=== PATIENT | female | born 1935 | race Caucasian/White ===

== ENCOUNTER 2017-06-20 12:25 | Emergency (ER) | payer MEDICARE, OTHER ==
[~2017-06-20] VITALS: Ht 157.5 cm; Wt 75.0 kg
[~2017-06-20 12:25] MED LIST: ASPI81TA28 PO; ATOR-24 PO; CLOP1TAB54 PO; IRON1TAB6 PO; LISI-725 PO; LISI-789 PO; METF500T PO; SERT25TA PO; SERT50TA PO; SIMV10TA2 PO; TCMD1 PO; TPRSR/50 PO; TRAM-10 PO; VITA100C2 PO; VITAMIN D3 PO
[2017-06-20 12:37] VITALS: TEMP 37.1; Ht 157.5 cm; Wt 75.0 kg
--- NOTE | 2017-06-20 13:41 | EMERGENCY ROOM VISIT NOTE ---
History Report prepared by Miriam: Edmund Garcia Under the Supervision of: Dr. Sharon Elizondo D.O. First contact with patient: 13:21 Chief Complaint: COUGH Stated Complaint: COUGHING UP BLOOD History of Present Illness The patient is an 81 year old female who presents to the Emergency Room with complaints of a worsening, productive, cough that started 4 days ago. The patient reports noticing small amounts of green colored phlegm and small amounts of blood when coughing yesterday. Associated symptoms include loss of appetite, a stiff neck, rhinorrhea, and nausea. She attributes her stiff neck to the way she has been sleeping. The patient states that she suffered from an upper respiratory infection a few years ago which showed similar symptoms as those she is experiencing today. She has an additional history of CHF and atrial fibrillation, for which she is prescribed anticoagulation therapy. She denies recent history of pneumonia. Patient denies chest pain, abdominal pain, shortness of breath beyond baseline, fevers, chills, and any additional associated symptoms. Source of History: patient, family Onset: 4 days ago Position: other (Respiratory ) Timing: worsening Modifying Factors (Relieving): other (None) Associated Symptoms: No fevers, No chills, No chest pain, No SOB, No abdominal pain Review of Systems See HPI for pertinent positives & negatives. A total of 10 systems reviewed and were otherwise negative. Past Medical & Surgical Medical Problems: (1) Acute urinary tract infection (2) Anxiety (3) Benign hypertension (4) CVA (5) Diabetes mellitus type 2 (6) Heart disease (7) Hypertension (8) URINARY FREQUENCY Family History Cancer Diabetes mellitus Gallbladder disease Heart disease Kidney disease Kidney stones Seizures Social History Smoking Status: Never Smoker Alcohol Use: none Marital Status: Housing Status: lives with family Occupation Status: retired Current/Historical Medications Scheduled Atorvastatin (Lipitor), 40 MG PO QAM Furosemide (Lasix), 1 TAB PO DAILY Iron-Vitamin C (Vitron-C), 1 TAB PO DAILY Isosorbide Mononitrate Ext Rel (Imdur Ext Rel), 1 TAB PO DAILY Metoprolol Succinate (Metoprolol Succinate ER), 50 MG PO QAM Sertraline (Zoloft), 25 MG PO QAM Warfarin Sodium (Coumadin), 1 TAB PO 3XWK Warfarin Sodium (Coumadin), 2 TAB PO 4XWK Scheduled PRN Tramadol (Ultram), 50 MG PO TID PRN for Pain Allergies Coded Allergies: No Known Allergies (Unverified , 06/20/17) Physical Exam Vital Signs Date Time Temp Pulse Resp B/P (MAP) Pulse Ox O2 Delivery O2 Flow Rate FiO2 06/20/17 17:02 101 18 157/101 93 06/20/17 16:19 91 Room Air 06/20/17 15:32 97 16 147/90 93 Room Air 06/20/17 14:15 92 Room Air 06/20/17 14:15 101 16 138/80 92 Room Air 06/20/17 12:37 37.1 110 18 130/72 92 Room Air Physical Exam GENERAL: alert, well appearing, well nourished, no distress, non-toxic EYE EXAM: normal conjunctiva, PERRL and EOM's grossly intact OROPHARYNX: Patient with sputum specimen at bedside, streams of blood noted. Oropharynx with no exudate, no erythema, lips, buccal mucosa, and tongue normal and mucous membranes are moist NECK: supple, no nuchal rigidity, no adenopathy, non-tender LUNGS: Clear to auscultation. Normal chest wall mechanics HEART: no murmurs, S1 normal and S2 normal ABDOMEN: abdomen soft, non-tender, normo-active bowel sounds, no masses, no rebound or guarding. BACK: Back is symmetrical on inspection and there is no deformity, no midline tenderness, no CVA tenderness. SKIN: no rashes and no bruising UPPER EXTREMITIES: upper extremities are grossly normal. LOWER EXTREMITIES: No pitting edema. NEURO EXAM: Normal sensorium, cranial nerves II-XII grossly intact, normal speech, no gross weakness of arms, no gross weakness of legs. Medical Decision & Procedures ER Provider Diagnostic Interpretation: Radiology results have been interpreted by the radiologist and reviewed by me. CT ANGIOGRAPHY OF THE CHEST, PULMONARY EMBOLUS PROTOCOL CLINICAL HISTORY: Cough. Hemoptysis. COMPARISON STUDY: Chest radiograph October 06, 2014. TECHNIQUE: Following IV administration of 92 mL of Optiray-320, helical axial images of the chest were obtained utilizing the pulmonary embolus protocol. Maximal intensity projections and sagittal and coronal reformats were viewed on an independent 3D workstation. IV contrast was administered without complication. A dose lowering technique was utilized adhering to the principles of ALARA. CT DOSE: 273.32 mGy.cm FINDINGS: No pulmonary emboli are identified although the segmental and subsegmental pulmonary arteries are suboptimally assessed due to respiratory motion. There is no evidence of thoracic aortic dissection. The heart is moderately enlarged. There is no pericardial effusion. No lobar consolidation is present. There is diffuse bronchial wall thickening with mild mucus plugging within the lower lobes. Several small ill-defined right lung airspace opacities are noted, most evident within the right upper lobe. There are scattered tree-in-bud nodules. Note is made of a 6 cm right lower lobe nodular density shown on image 89 of 283. There is no pneumothorax or pleural effusion. Bony thorax and upper abdomen are unremarkable. IMPRESSION: 1. No pulmonary emboli identified although segmental and subsegmental pulmonary arteries suboptimally assessed due to respiratory motion. 2. Several small ill-defined groundglass and tree-in-bud opacities within the right lung which suggest a mild infectious process such as bronchiolitis. A follow-up chest CT in 3 months to ensure resolution is recommended. A few small low suspicion pulmonary nodules can be assessed at that time. 3. Lower lobe predominant bronchial wall thickening and mild multifocal mucoid impaction. 4. Moderate cardiomegaly. 5. Small hiatal hernia. Electronically signed by: Jethro Og M.D. 06/20/2017 3:28 PM Dictated Date/Time: 06/20/2017 3:15 PM Laboratory Results 06/20/17 14:10 Red Blood Count 5.12, Mean Corpuscular Volume 76.6, Mean Corpuscular Hemoglobin 24.8, Mean Corpuscular Hemoglobin Concent 32.4, Mean Platelet Volume 9.4, Neutrophils (%) (Auto) 79.6, Lymphocytes (%) (Auto) 9.4, Monocytes (%) (Auto) 9.3, Eosinophils (%) (Auto) 1.2, Basophils (%) (Auto) 0.2, Neutrophils # (Auto) 9.60, Lymphocytes # (Auto) 1.14, Monocytes # (Auto) 1.13, Eosinophils # (Auto) 0.15, Basophils # (Auto) 0.03 06/20/17 14:10 Test 06/20/17 14:10 White Blood Count 12.09 K/uL (4.8-10.8) Red Blood Count 5.12 M/uL (4.2-5.4) Hemoglobin 12.7 g/dL (12.0-16.0) Hematocrit 39.2 % (37-47) Mean Corpuscular Volume 76.6 fL (80-100) Mean Corpuscular Hemoglobin 24.8 pg (25-34) Mean Corpuscular Hemoglobin Concent 32.4 g/dl (32-36) Platelet Count 312 K/uL (130-400) Mean Platelet Volume 9.4 fL (7.4-10.4) Neutrophils (%) (Auto) 79.6 % Lymphocytes (%) (Auto) 9.4 % Monocytes (%) (Auto) 9.3 % Eosinophils (%) (Auto) 1.2 % Basophils (%) (Auto) 0.2 % Neutrophils # (Auto) 9.60 K/uL (1.4-6.5) Lymphocytes # (Auto) 1.14 K/uL (1.2-3.4) Monocytes # (Auto) 1.13 K/uL (0.11-0.59) Eosinophils # (Auto) 0.15 K/uL (0-0.5) Basophils # (Auto) 0.03 K/uL (0-0.2) RDW Standard Deviation 40.7 fL (36.4-46.3) RDW Coefficient of Variation 14.2 % (11.5-14.5) Immature Granulocyte % (Auto) 0.3 % Immature Granulocyte # (Auto) 0.04 K/uL (0.00-0.02) Prothrombin Time 54.9 SECONDS (9.0-12.0) Prothromb Time International Ratio 4.8 (0.9-1.1) Anion Gap 5.0 mmol/L (3-11) Est Creatinine Clear Calc Drug Dose 36.7 ml/min Estimated GFR () 53.8 Estimated GFR (Non- 46.4 BUN/Creatinine Ratio 12.5 (10-20) Calcium Level 9.0 mg/dl (8.5-10.1) Total Bilirubin 0.6 mg/dl (0.2-1) Aspartate Amino Transf (AST/SGOT) 15 U/L (15-37) Alanine Aminotransferase (ALT/SGPT) 12 U/L (12-78) Alkaline Phosphatase 123 U/L (45-117) Troponin I 0.018 ng/ml (0-0.045) Pro-B-Type Natriuretic Peptide 2383 pg/ml (0-1800) Total Protein 7.5 gm/dl (6.4-8.2) Albumin 2.9 gm/dl (3.4-5.0) Globulin 4.6 gm/dl (2.5-4.0) Albumin/Globulin Ratio 0.6 (0.9-2) Laboratory results per my review. ECG Indication: other (Cough) Rate (beats per minute): 95 Rhythm: sinus rhythm Findings: no acute ischemic change, other (Normal axis, normal interval, low voltage throughout ) ED Course 1329: The patient was evaluated in room C4. A complete history and physical exam was performed. 1455: Review of EMR reveals patient had Echo done in October 2014 which showed EF 25-30% Chart also reveals significant cardiomyopathy in the past. 1538: I updated the patient. She made me aware that she has not been taking her Lasix daily for several months. She is unable to remember the last time she had an Echo. The patient follows with Dr. Walters (Cardiology). 1605: I reviewed the patient's case with Dr. Santos (Cardiology). He requests that I tell the patient to restart her Lasix and take as prescribed. He also recommends the patient follow up closely in the office. 1619: Upon reevaluation, the patient is feeling better. I discussed the findings and the treatment plan with the patient. She verbalizes agreement and understanding. She was discharged home. Medical Decision Patient well-appearing here despite complaints. Per patient and family noncompliant with home oxygen is previous liters prescribed. She with known significant cardiomyopathy and decreased ejection fraction. Patient's exam not consistent with acute congestive heart failure. No history of COPD and patient never smoker. Patient's INR supratherapeutic and no evidence of PE on CAT scan of the chest. Patient found to have mild bronchiolitis on CT. Sputum at bedside was clear with streaks of blood. Likely hemoptysis secondary to supratherapeutic INR due to Coumadin use for A. fib. Labs otherwise reassuring. No evidence of bacteremia/sepsis. Patient with elevated BNP, however considering known cardiac history in patient's admission to being noncompliant with taking her daily Lasix as prescribed, likely a chronic finding. This was discussed with cardiology as a precaution. I advised patient should restart her Lasix and they will see her in the office next week. Extensive bedside discussion with patient and family about her condition, compliance with treatment prescribed by her doctors, close follow-up with cardiology, symptoms to watch and return for, use of other medications, holding Coumadin for 2 days and then having a repeat INR done the beginning of the week , they verbalized understanding of all this were agreeable with plan. Doubt ACS, CHF, tamponade, effusion, pneumonia, dissection, AAA, PE, perforation , GI bleed, deep space infection, bacteremia/sepsis, peritonsillar abscess, strep pharyngitis, meningitis. Medication Reconcilliation Current Medication List: was personally reviewed by me Blood Pressure Screening Patient's blood pressure: Elevated blood pressure Blood pressure disposition: Elevated BP felt to be situational Consults Time Called: 1550 Consulting Physician: Dr. Santos (Cardiology) Returned Call: 1605 I reviewed the patient's case with Dr. Santos (Cardiology). He requests that I tell the patient to restart her Lasix and take as prescribed. He also recommends the patient follow up closely in the office. They will schedule appointment call the patient. He agrees likely BNP elevated chronically patient 's exam and CT otherwise consistent with acute CHF. Impression Primary Impression: Cough Additional Impressions: Upper respiratory infection Hemoptysis Scribe Attestation The scribe's documentation has been prepared under my direction and personally reviewed by me in its entirety. I confirm that the note above accurately reflects all work, treatment, procedures, and medical decision making performed by me. Departure Information Dispostion Home / Self-Care Referrals Brandon Yu M.D. (PCP) Forms HOME CARE DOCUMENTATION FORM, IMPORTANT VISIT INFORMATION Patient Instructions My [facility] Additional Instructions Please do not take your Coumadin for tonight, then begin taking it again as normal. Please have your Coumadin number/INR rechecked the beginning of next week. Please take your Lasix daily as previously prescribed. Please continue to monitor your symptoms. The blood in your sputum was likely due to being on blood thinners and your blood being extra thin. If you have any worsening cough , develop trouble breathing, fevers or chills, chest pain or pressure, feel you' re developing swelling in your legs or gaining weight, feel dizzy or lightheaded , or you have any other new concerns, please return to the emergency room. Problem Qualifiers Additional Impressions: Upper respiratory infection URI type: unspecified URI Qualified Codes: J06.9 - Acute upper respiratory infection, unspecified
[2017-06-20] MEDS ORDERED: OPTIRAY 320 IV PRN (14:00)
[2017-06-20 14:26] LABS: BASO % 0.2 %; BASO ABS # 0.03 K/uL (0-0.2); COMPLETE YES; EOS % 1.2 %; HEMATOCRIT 39.2 % (37-47); IG% 0.3 %; LYMPH % 9.4 %; LYMPH ABS # 1.14 K/uL (1.2-3.4); MEAN CELL VOLUME 76.6 fL (80-100); MEAN CORPUSCULAR HEMOGLOBIN 24.8 pg (25-34); MEAN CORPUSCULAR HGB CONC 32.4 g/dl (32-36); MEAN PLATELET VOLUME 9.4 fL (7.4-10.4); MONO % 9.3 %; NEUT % 79.6 %; PLATELET COUNT 312 K/uL (130-400); RED BLOOD COUNT 5.12 M/uL (4.2-5.4); WHITE BLOOD COUNT 12.09 K/uL (4.8-10.8)
[2017-06-20 14:39] LABS: PROTHROMBIN TIME (PATIENT) 54.9 SECONDS (9.0-12.0)
[2017-06-20 14:44] LABS: BUN/CREATININE RATIO 12.5 (10-20); CREATININE 1.1 mg/dl (0.60-1.20); POTASSIUM 4.1 mmol/L (3.5-5.1)
[2017-06-20 14:49] LABS: ALB/GLOB RATIO 0.6 (0.9-2)
[2017-06-20 14:50] LABS: INR 4.8 (0.9-1.1)
--- NOTE | 2017-06-20 15:29 | DIAGNOSTIC IMAGING REPORT ---
CT ANGIOGRAPHY OF THE CHEST, PULMONARY EMBOLUS PROTOCOL CLINICAL HISTORY: Cough. Hemoptysis. COMPARISON STUDY: Chest radiograph October 06, 2014. TECHNIQUE: Following IV administration of 92 mL of Optiray-320, helical axial images of the chest were obtained utilizing the pulmonary embolus protocol. Maximal intensity projections and sagittal and coronal reformats were viewed on an independent 3D workstation. IV contrast was administered without complication. A dose lowering technique was utilized adhering to the principles of ALARA. CT DOSE: 273.32 mGy.cm FINDINGS: No pulmonary emboli are identified although the segmental and subsegmental pulmonary arteries are suboptimally assessed due to respiratory motion. There is no evidence of thoracic aortic dissection. The heart is moderately enlarged. There is no pericardial effusion. No lobar consolidation is present. There is diffuse bronchial wall thickening with mild mucus plugging within the lower lobes. Several small ill-defined right lung airspace opacities are noted, most evident within the right upper lobe. There are scattered tree-in-bud nodules. Note is made of a 6 cm right lower lobe nodular density shown on image 89 of 283. There is no pneumothorax or pleural effusion. Bony thorax and upper abdomen are unremarkable. IMPRESSION: 1. No pulmonary emboli identified although segmental and subsegmental pulmonary arteries suboptimally assessed due to respiratory motion. 2. Several small ill-defined groundglass and tree-in-bud opacities within the right lung which suggest a mild infectious process such as bronchiolitis. A follow-up chest CT in 3 months to ensure resolution is recommended. A few small low suspicion pulmonary nodules can be assessed at that time. 3. Lower lobe predominant bronchial wall thickening and mild multifocal mucoid impaction. 4. Moderate cardiomegaly. 5. Small hiatal hernia. Electronically signed by: Jethro Og M.D. 06/20/2017 3:28 PM Dictated Date/Time: 06/20/2017 3:15 PM
[2017-06-20] MEDS ORDERED: FURO-85 PO (15:41)
[2017-06-20] MEDS ORDERED: ISOS30TA3 PO (15:41)
[2017-06-20] MEDS ORDERED: FERRTAB18 PO (15:41)
[2017-06-20] MEDS ORDERED: WARF1TAB PO ×2 (15:43)
[2017-06-20 17:02] VITALS: BP 157/101; PULSE 101; O2SAT 93
== END 2017-06-20 17:09 | disposition home or self-care (01) ==
LOC: C.EDB 12:29 → C.EDC 17:09
DX: R05 Cough (principal); J06.9 Acute upper respiratory infection, unspecified; R04.2 Hemoptysis; I11.0 Hypertensive heart disease with heart failure; I50.9 Heart failure, unspecified; I48.91 Unspecified atrial fibrillation; F41.9 Anxiety disorder, unspecified; Z79.01 Long term (current) use of anticoagulants; E11.9 Type 2 diabetes mellitus without complications; Z86.73 Personal history of transient ischemic attack (TIA), and cerebral infarction without residual deficits; Z83.3 Family history of diabetes mellitus; Z84.1 Family history of disorders of kidney and ureter; Z82.0 Family history of epilepsy and other diseases of the nervous system

== ENCOUNTER 2021-12-13 22:12 | Inpatient (IN) ==
[2021-12-13] MEDS ORDERED: FAMOTIDINE 20MG IV PUSH 20 MG/5 ML SYR IV STA (22:41)
[2021-12-13] MEDS ORDERED: SODIUM CHLORIDE 0.9% 1000ML 500 ML IV ONE (22:41)
[2021-12-13] MEDS ORDERED: ONDANSETRON INJ 2 MG/ML 2 ML VIAL IV STA (22:41)
--- NOTE | 2021-12-13 22:44 | Emergency Department Note ---
Impression & Plan Acute GI bleeding, Acute blood loss anemia (ABLA), Weakness, Elevated INR ED Provider Note Provider: Vincent Gruber MD DATE OF SERVICE: 12/13/2021 CHIEF COMPLAINT: Weakness, urinary frequency, stomach upset HISTORY OF PRESENT ILLNESS: Patient is a 86-year-old female past medical history of type 2 diabetes, atrial fibrillation/CHF, hypertension and presenting via ambulance from home tonight. Patient evidently started to feel a bit off yesterday with some decreased intake. Today complaining of some stomach discomfort and urinary frequency. Limited food intake today but has taken her m edicines per her report. Daughter who is present at bedside states that she has been a little bit confused at times today. Patient denies significant headache or chest pain. Denies URI symptoms. Patient reports that her stomach feels unsettled and she is intermittently noticed little black stools. Daughter at bedside reports the patient seemed a bit pale to her as well. REVIEW OF SYSTEMS: A total of 10 review of systems was obtained and negative except as stated above in the HPI. PAST MEDICAL HISTORY: As noted above MEDICATIONS: Reviewed home medication list include Coumadin SOCIAL HISTORY: Lives at home with daughter PHYSICAL EXAM: GENERAL: alert and oriented in no acute distress on stretcher Head: normocephalic and atraumatic EYES: No injection, discharge or icterus. PERRL NECK: Trachea midline. ENT: Mucous membranes pink and moist. LUNGS: Airway patent. No retractions. Breath sounds clear with good air entry bilaterally. HEART: Intermittently irregular and intermittently tachycardic rate and rhythm. No chest wall tenderness ABDOMEN: Soft mild mid abdominal pain. Not peritoneal. No guarding. With nursing road oiler Sarah, Hemoccult positive rectal exam without gross red blood. SKIN: Acyanotic, warm, dry, without rashes however somewhat pale in appearance EXTREMITIES: Without swelling, tenderness or deformity NEUROLOGICAL: No focal deficits moving all extremities. No aphasia. No facial droop or slurred speech. EK bpm normal sinus rhythm QTC of 471. No acute ST segment elevation or depression noted. CONTINUOUS CARDIAC MONITORING: was ordered and showed a heart rate of 80s to 120s bpm in atrial fibrillation normal sinus rhythm at various points 1 view chest x-ray per my interpretation: No evidence of pneumonia or pneumothorax. No significant pulmonary edema. Patient's laboratory studies and imaging reviewed. Differential includes Infection, dehydration, metabolic abnormality, hypo/hyperglycemia, electrolyte disturbance, anemia, hypoxia, cardiac sources, intracerebral event, toxicologic, neurologic, as well as other pathologies. IMPRESSION/MEDICAL DECISION MAKING: Patient presents with some weakness maybe little bit of confusion developing over the past 24 to 36 hours. Some upset abdominal discomforts noted as well. Patient with minimal but slight mid abdominal tenderness. Patient is alert and oriented here without focal neurological deficit. Does complain of some urinary symptoms. Urinalysis not impressive. Negative COVID. Hemoglobin returned significantly decreased at 6.6 compared to 13 3 weeks ago. Does endorse me lanotic stools and melena noted on exam with the patient Hemoccult positive. INR greater than 10. GI bleed concern. CT completed to exclude internal bleeding. Consented for blood. 1 unit PRBC transfusion ordered. PPI bolus and drip ordered. Vitamin K ordered. Kcentra to be given. Patient and daughter updated at bedside. Hospitalist to be contacted. DIAGNOSIS: GI bleed, elevated INR, weakness, acute blood loss anemia DISPOSITION: Hospitalist will evaluate Patient was agreeable with this plan. Daughter updated at bedside Critical Care I have personally spent 35 minutes of critical care time in the direct management of this patient. This includes bedside care, interpretation of diagnostic studies, and testing, discussion with consultants, patient, and f amily members, and other required patient management activities. These 35 minutes is in excess of all separately billable procedures. Preliminary Findings Only See Final Report For Complete Findings CT HEAD: Comparison to October 06, 2014. There is in approximately 4 cm area evidence of encephalomalacia in the right frontal parietal region consistent with old infarct, unchanged. The remainder of the brain appears within normal limits. No acute large vessel infarct or intracranial hemorrhage is identified. The paranasal sinuses and mastoid air cells are within normal limits. No skull fracture or scalp hematoma is seen. Radiologist: Vincent Wetzel MD Study ready at 01:48 and initial results transmitted at 02:01 Preliminary Findings Only See Final Report For Complete Findings CT ABDOMEN & PELVIS Without Contrast: There is a nonobstructive 5 mm calyceal calculus in the lower pole the right ki dney. No hydronephrosis or ureterolithiasis is seen. Bowel loops are nondilated. There is moderate diverticulosis of the lower left and sigmoid colon. There are no signs of acute diverticulitis. There are several scattered gas fluid levels in the right and transverse colon suggesting mild ileus. No pneumoperitoneum or free fluid is seen. No signs of acute appendicitis. The abdominal aorta is heavily calcified but nondilated. The liver, gallbladder, pancreas, spleen, and adrenal glands appear within normal limits. The uterus, adnexa, and urinary bladder appear within normal limits. There are moderate degenerative changes throughout the lower thoracic and lumbar spine. No acute fracture or subluxation is seen. There are severe degenerative osteophytic changes involving the left hip. Radiologist: Vincent Wetzel MD Past Med/Surg History Medical History (Updated 12/13/21 @ 23:49 by Vincent Gruber M.D.) Acute CHF (10/06/14) Acute urinary tract infection (08/08/12) AF (atrial fibrillation) (10/06/14) Anxiety (08/08/12) Benign hypertension (08/08/12) CHF exacerbation CVA (cerebral vascular accident) (08/08/12) Cystocele (08/08/12) DM2 (diabetes mellitus, type 2) (08/08/12) Heart disease Hypertension Shortness of breath Thrombophlebitis Urinary frequency (08/08/12) Urinary retention (08/08/12) Surgical History No pertinent past surgical history Social History Smoking Status: Never smoker Preferred Language: Filipino Feels Safe at Home: Yes Allergies Allergies Allergy/AdvReac Type Severity Reaction Status Date / Time No Known Allergies Allergy Unverified 12/13/21 22:30 Home Meds Home Medications Medication Instructions Recorded Confirmed sertraline 25 mg tablet 25 mg PO DAILY #0 tab 10/06/14 12/13/21 tramadol 50 mg tablet 50 mg PO TID PRN #0 tab 10/06/14 12/13/21 atorvastatin 40 mg tablet 40 mg PO QAM #0 tab 11/01/14 12/13/21 metoprolol succinate 25 mg 12.5 mg PO QAM #0 11/01/14 12/13/21 tablet,extended release 24 hr ascorbic acid (vitamin C) 125 mg 125 mg PO DAILY #0 06/20/17 12/13/21 chewable tablet (Vitamin C) warfarin 1 mg tablet 1 - 2 tab PO UD #0 06/20/17 12/13/21 acetaminophen 500 mg tablet 500 mg PO DAILY PRN 11/25/21 12/13/21 isosorbide mononitrate 60 mg 60 mg PO DAILY 12/13/21 12/13/21 tablet,extended release 24 hr Results & Data (ED) Vital Signs Vital Signs - 24 hr 12/13/21 22:25 12/13/21 23:00 12/14/21 00:00 Temperature 36.8 C Temperature Source Oral Pulse Rate 86 85 Pulse Rate [Apical] Respiratory Rate 19 23 Respiratory Effort / Characteristics Respiratory Depth Respiratory Pattern Blood Pressure 124/46 L 130/54 L 110/58 L Blood Pressure [Right Arm] Blood Pressure Mean 72 79 75 Blood Pressure Mean [Right Arm] Blood Pressure Position [Right Arm] Pulse Oximetry 100 99 85 L Oxygen Delivery Method Room Air Room Air Room Air Oxygen Flow Rate Sepsis Recent Fever Within 48 Hours No Sepsis New/Unexplained Change in Mental Status No Sepsis Action Taken by Nursing No Action Required Oxygen Flow Rate - Titration Pulse Oximetry Post Tiitration 12/14/21 00:10 12/14/21 00:14 12/14/21 00:15 Temperature Temperature Source Pulse Rate 84 Pulse Rate [Apical] Respiratory Rate 20 20 Respiratory Effort / Characteristics Respiratory Depth Respiratory Pattern Blood Pressure 117/47 L 121/45 L Blood Pressure [Right Arm] Blood Pressure Mean 70 70 Blood Pressure Mean [Right Arm] Blood Pressure Position [Right Arm] Pulse Oximetry 86 L 97 100 Oxygen Delivery Method Room Air Nasal Cannula Nasal Cannula Nasal Cannula Oxygen Flow Rate 0 3 3 Sepsis Recent Fever Within 48 Hours Sepsis New/Unexplained Change in Mental Status Sepsis Action Taken by Nursing Oxygen Flow Rate - Titration 3 Pulse Oximetry Post Tiitration 100 12/14/21 00:30 12/14/21 00:32 12/14/21 00:45 Temperature Temperature Source Pulse Rate 76 84 Pulse Rate [Apical] 121 H Respiratory Rate 17 18 18 Respiratory Effort / Characteristics Non-Labored Spontaneous Respiratory Depth Normal Respiratory Pattern Regular Blood Pressure 116/63 146/61 H Blood Pressure [Right Arm] 116/63 Blood Pressure Mean 80 89 Blood Pressure Mean [Right Arm] 80 Blood Pressure Position [Right Arm] Semi-fowlers Pulse Oximetry 100 100 100 Oxygen Delivery Method Nasal Cannula Nasal Cannula Nasal Cannula Oxygen Flow Rate 3 3 Sepsis Recent Fever Within 48 Hours Sepsis New/Unexplained Change in Mental Status Sepsis Action Taken by Nursing Oxygen Flow Rate - Titration Pulse Oximetry Post Tiitration Laboratory Data Result diagrams: 12/13/21 22:24 12/13/21 22:24 Lab Results 12/13/21 12/13/21 12/13/21 Range/Units 22:24 22:24 22:24 WBC 16.66 H (4.8-10.8) K/uL RBC 2.53 L (4.2-5.4) M/uL Hgb 6.6 L* (12.0-16.0) g/dL Hct 21.1 L (37-47) % MCV 83.4 (80-100) fL MCH 26.1 (25-34) pg MCHC 31.3 L (32-36) g/dL RDW Std Deviation 46.1 (36.4-46.3) fL RDW Coeff of Tammie 15.5 H (11.5-14.5) % Plt Count 311 (130-400) K/uL MPV 11.0 H (7.4-10.4) fL Immature Gran % (Auto) 0.5 % Neut % (Auto) 86.4 % Lymph % (Auto) 9.6 % Newberry % (Auto) 3.1 % Eos % (Auto) 0.3 % Baso % (Auto) 0.1 % Neut # (Auto) 14.39 H (1.4-6.5) K/uL Lymph # (Auto) 1.60 (1.2-3.4) K/uL Newberry # (Auto) 0.52 (0.11-0.59) K/uL Eos # (Auto) 0.05 (0-0.5) K/uL Baso # (Auto) 0.02 (0-0.2) K/uL Immature Gran # (Auto) 0.08 H (0.00-0.02) K/uL Ovalocytes 1+ Acanthocytes (Spur) 1+ PT (9.0-12.0) Seconds INR (0.9-1.1) Sodium 134 L (136-145) mmol/L Potassium 4.0 (3.5-5.1) mmol/L Chloride 100 (98-107) mmol/L Carbon Dioxide 23 (21-32) mmol/L Anion Gap 11 (3-11) BUN 76 H (6-23) mg/dl Creatinine 1.21 H (0.6-1.2) mg/dl Est Cr Clr Drug Dosing Not Reportable Est GFR ( Amer) 46.3 ml/min Est GFR (Non-Af Amer) 39.9 ml/min BUN/Creatinine Ratio 62.8 H (10-20) Glucose 276 H (70-99) mg/dl Calcium 8.0 L (8.5-10.1) mg/dl Magnesium 1.6 L (1.7-2.4) mg/dl Total Bilirubin 0.4 (0.2-1.0) mg/dl AST 11 L (13-39) U/L ALT 8 (7-52) U/L Alkaline Phosphatase 46 (34-104) U/L Troponin I < 0.03 (0-0.04) ng/ml Total Protein 5.4 L (6.0-8.3) gm/dl Albumin 3.4 (3.4-5.0) gm/dl Globulin 2.0 L (2.5-4.0) gm/dl Albumin/Globulin Ratio 1.7 (0.9-2) Lipase 40 (11-82) U/L Procalcitonin (0-0.5) ng/ml TSH 1.282 (0.300-4.500) uIu/ml Urine Color Urine Appearance (Clear) Urine pH (4.5-7.5) Ur Specific [place] (1.000-1.030) Urine Protein (Negative) Urine Glucose (UA) (Negative) Urine Ketones (Negative) Urine Blood (Negative) Urine Nitrite (Negative) Urine Bilirubin (Negative) Urine Urobilinogen (Negative) Ur Leukocyte Esterase (Negative) Urine WBC (Auto) (0-5) /hpf Urine RBC (Auto) (0-4) /hpf U Hyaline Cast (Auto) (0-5) /lpf U Epithel Cells (Auto) (0-5) /lpf Urine Bacteria (Auto) (Negative) SARS-CoV-2, RNA, NAAT (NEGATIVE) Blood Type Antibody Screen Crossmatch 12/13/21 12/13/21 12/13/21 Range/Units 22:24 22:24 22:24 WBC (4.8-10.8) K/uL RBC (4.2-5.4) M/uL Hgb (12.0-16.0) g/dL Hct (37-47) % MCV (80-100) fL MCH (25-34) pg MCHC (32-36) g/dL RDW Std Deviation (36.4-46.3) fL RDW Coeff of Tammie (11.5-14.5) % Plt Count (130-400) K/uL MPV (7.4-10.4) fL Immature Gran % (Auto) % Neut % (Auto) % Lymph % (Auto) % Newberry % (Auto) % Eos % (Auto) % Baso % (Auto) % Neut # (Auto) (1.4-6.5) K/uL Lymph # (Auto) (1.2-3.4) K/uL Newberry # (Auto) (0.11-0.59) K/uL Eos # (Auto) (0-0.5) K/uL Baso # (Auto) (0-0.2) K/uL Immature Gran # (Auto) (0.00-0.02) K/uL Ovalocytes Acanthocytes (Spur) PT > 90.0 H (9.0-12.0) Seconds INR > 10.7 H* (0.9-1.1) Sodium (136-145) mmol/L Potassium (3.5-5.1) mmol/L Chloride (98-107) mmol/L Carbon Dioxide (21-32) mmol/L Anion Gap (3-11) BUN (6-23) mg/dl Creatinine (0.6-1.2) mg/dl Est Cr Clr Drug Dosing Est GFR ( Amer) ml/min Est GFR (Non-Af Amer) ml/min BUN/Creatinine Ratio (10-20) Glucose (70-99) mg/dl Calcium (8.5-10.1) mg/dl Magnesium (1.7-2.4) mg/dl Total Bilirubin (0.2-1.0) mg/dl AST (13-39) U/L ALT (7-52) U/L Alkaline Phosphatase (34-104) U/L Troponin I (0-0.04) ng/ml Total Protein (6.0-8.3) gm/dl Albumin (3.4-5.0) gm/dl Globulin (2.5-4.0) gm/dl Albumin/Globulin Ratio (0.9-2) Lipase (11-82) U/L Procalcitonin 0.13 (0-0.5) ng/ml TSH (0.300-4.500) uIu/ml Urine Color Urine Appearance (Clear) Urine pH (4.5-7.5) Ur Specific [place] (1.000-1.030) Urine Protein (Negative) Urine Glucose (UA) (Negative) Urine Ketones (Negative) Urine Blood (Negative) Urine Nitrite (Negative) Urine Bilirubin (Negative) Urine Urobilinogen (Negative) Ur Leukocyte Esterase (Negative) Urine WBC (Auto) (0-5) /hpf Urine RBC (Auto) (0-4) /hpf U Hyaline Cast (Auto) (0-5) /lpf U Epithel Cells (Auto) (0-5) /lpf Urine Bacteria (Auto) (Negative) SARS-CoV-2, RNA, NAAT NEGATIVE (NEGATIVE) Blood Type Antibody Screen Crossmatch 12/13/21 12/13/21 Range/Units 22:56 23:50 WBC (4.8-10.8) K/uL RBC (4.2-5.4) M/uL Hgb (12.0-16.0) g/dL Hct (37-47) % MCV (80-100) fL MCH (25-34) pg MCHC (32-36) g/dL RDW Std Deviation (36.4-46.3) fL RDW Coeff of Tammie (11.5-14.5) % Plt Count (130-400) K/uL MPV (7.4-10.4) fL Immature Gran % (Auto) % Neut % (Auto) % Lymph % (Auto) % Newberry % (Auto) % Eos % (Auto) % Baso % (Auto) % Neut # (Auto) (1.4-6.5) K/uL Lymph # (Auto) (1.2-3.4) K/uL Newberry # (Auto) (0.11-0.59) K/uL Eos # (Auto) (0-0.5) K/uL Baso # (Auto) (0-0.2) K/uL Immature Gran # (Auto) (0.00-0.02) K/uL Ovalocytes Acanthocytes (Spur) PT (9.0-12.0) Seconds INR (0.9-1.1) Sodium (136-145) mmol/L Potassium (3.5-5.1) mmol/L Chloride (98-107) mmol/L Carbon Dioxide (21-32) mmol/L Anion Gap (3-11) BUN (6-23) mg/dl Creatinine (0.6-1.2) mg/dl Est Cr Clr Drug Dosing Est GFR ( Amer) ml/min Est GFR (Non-Af Amer) ml/min BUN/Creatinine Ratio (10-20) Glucose (70-99) mg/dl Calcium (8.5-10.1) mg/dl Magnesium (1.7-2.4) mg/dl Total Bilirubin (0.2-1.0) mg/dl AST (13-39) U/L ALT (7-52) U/L Alkaline Phosphatase (34-104) U/L Troponin I (0-0.04) ng/ml Total Protein (6.0-8.3) gm/dl Albumin (3.4-5.0) gm/dl Globulin (2.5-4.0) gm/dl Albumin/Globulin Ratio (0.9-2) Lipase (11-82) U/L Procalcitonin (0-0.5) ng/ml TSH (0.300-4.500) uIu/ml Urine Color Yellow Urine Appearance Clear (Clear) Urine pH 5.0 (4.5-7.5) Ur Specific [place] 1.019 (1.000-1.030) Urine Protein Negative (Negative) Urine Glucose (UA) Negative (Negative) Urine Ketones Trace H (Negative) Urine Blood Negative (Negative) Urine Nitrite Negative (Negative) Urine Bilirubin Negative (Negative) Urine Urobilinogen Negative (Negative) Ur Leukocyte Esterase 1+ H (Negative) Urine WBC (Auto) 1-5 (0-5) /hpf Urine RBC (Auto) 0-4 (0-4) /hpf U Hyaline Cast (Auto) 1-5 (0-5) /lpf U Epithel Cells (Auto) 5-10 H (0-5) /lpf Urine Bacteria (Auto) Negative (Negative) SARS-CoV-2, RNA, NAAT (NEGATIVE) Blood Type A Positive Antibody Screen NEGATIVE Crossmatch See Detail Administered Medications Pantoprazole Sodium 40 mg/ (Dextrose) 100 mls @ 20 mls/hr IV Q5H DELFINO Stop: 01/12/22 23:29 Last Admin: 12/14/21 01:13 Dose: 8 mg/hr, 20 mls/hr Documented by: [id number] Discontinued Medications Sodium Chloride (Nss 1000ml) 500 mls @ 999 mls/hr IV .Q31M ONE Stop: 12/13/21 23:11 Last Infusion: 12/14/21 00:02 Dose: 0 mls/hr Documented by: [id number] Admin: 12/13/21 23:31 Dose: 999 mls/hr Documented by: [id number] Famotidine (Pepcid 20mg Iv Push) 20 mg in 5 mls @ 2.5 mls/min IV NOW STA Stop: 12/13/21 22:42 Last Admin: 12/13/21 23:30 Dose: 2.5 mls/min Documented by: [id number] Phytonadione 10 mg/ Sodium (Chloride) 51 mls @ 102 mls/hr IV ONE ONE Stop: 12/13/21 23:34 Last Infusion: 12/14/21 00:15 Dose: 0 mls/hr Documented by: [id number] Admin: 12/13/21 23:45 Dose: 102 mls/hr Documented by: [id number] Pantoprazole Sodium 80 mg/ (Dextrose) 120 mls @ 400 mls/hr IV NOW ONE Stop: 12/13/21 23:22 Last Infusion: 12/14/21 01:02 Dose: 0 mls/hr Documented by: [id number] Admin: 12/14/21 00:44 Dose: 400 mls/hr Documented by: [id number] Prothrombin Complex Concent ( (Human) 3,500 units/ Syringe) 140 mls @ 10 mls/min IV NOW ONE; Protocol Stop: 12/13/21 23:58 Last Admin: 12/13/21 23:50 Dose: 10 mls/min Documented by: [id number] Ondansetron HCl (Ondansetron Inj 2 Mg/Ml 2 Ml Vial) 4 mg IV NOW STA Stop: 12/13/21 22:42 Last Admin: 12/13/21 23:30 Dose: 4 mg Documented by: [id number] Discharge Plan Visit Data Chief Complaint: Urinary Symptoms Stated Complaint: WEAKNESS ED Provider: Vincent Gruber Discharge Problem: Acute GI bleeding, Acute blood loss anemia (ABLA), Weakness, Elevated INR Patient Disposition: Being Evaluated by Hospitalist Forms Stand Alone Forms: [facility] Prescriptions Prescriptions: No Action sertraline 25 mg Tablet 25 mg PO DAILY Qty: 0 RF: 0 tramadol 50 mg Tablet 50 mg PO TID PRN (Reason: Pain) Qty: 0 RF: 0 atorvastatin 40 mg Tablet 40 mg PO QAM Qty: 0 RF: 0 metoprolol succinate 25 mg Tablet Extended Release 24 Hr 12.5 mg PO QAM Qty: 0 RF: 0 ascorbic acid (vitamin C) [Vitamin C] 125 mg Tablet,Chewable 125 mg PO DAILY Qty: 0 RF: 0 warfarin 1 mg Tablet 1 - 2 tab PO UD Qty: 0 RF: 0 acetaminophen [Tylenol Ex Str Rapid Release] 500 mg Tablet 500 mg PO DAILY PRN (Reason: Pain) RF: 0 isosorbide mononitrate 60 mg tablet extended release 24 hr 60 mg PO DAILY RF: 0 Referrals Referrals: Brandon Yu MD [Primary Care Provider] -
[2021-12-13 23:01] LABS: Hematocrit (blood only) 21.1 % (37-47); Hemoglobin 6.6 g/dL (12.0-16.0); Mean Corpuscular Hemoglobin 26.1 pg (25-34); Mean Corpuscular Hgb Conc 31.3 g/dL (32-36); Mean Corpuscular Volume 83.4 fL (80-100); Platelet Count 311 K/uL (130-400); RDW Coefficient of Variation 15.5 % (11.5-14.5); RDW Standard Deviation 46.1 fL (36.4-46.3); Red Blood Count 2.53 M/uL (4.2-5.4); White Blood Count 16.66 K/uL (4.8-10.8)
[2021-12-13 23:03] LABS: Appearance Urine Clear (Clear); Bacteria Urine Automated Negative (Negative); Bilirubin Urine Negative (Negative); Blood Urine Negative (Negative); Color Urine Yellow; Glucose Urine UA Negative (Negative); Ketones Urine Trace (Negative); Leukocyte Esterase Urine 1+ (Negative); Nitrite Urine Negative (Negative); Protein Urine Negative (Negative); RBC Urine Automated 0-4 /hpf (0-4); Specific Gravity Urine 1.019 (1.000-1.030); Urobilinogen Urine Negative (Negative)
[2021-12-13 23:04] LABS: Alanine Aminotransferase 8 U/L (7-52); Albumin Globulin Ratio 1.7 (0.9-2); Albumin Level 3.4 gm/dl (3.4-5.0); Alkaline Phosphatase 46 U/L (34-104); Anion Gap 11 (3-11); Aspartate Aminotransferase 11 U/L (13-39); BUN Creatinine Ratio 62.8 (10-20); Bilirubin,Total 0.4 mg/dl (0.2-1.0); Blood Urea Nitrogen 76 mg/dl (6-23); Carbon Dioxide 23 mmol/L (21-32); Chloride 100 mmol/L (98-107); Est GFR (African American) 46.3 ml/min; Est GFR (Non-African American) 39.9 ml/min; Glucose 276 mg/dl (70-99); INR > 10.7 (0.9-1.1); Lipase 40 U/L (11-82); Magnesium 1.6 mg/dl (1.7-2.4); Prothrombin Time > 90.0 Seconds (9.0-12.0); Sodium 134 mmol/L (136-145); Total Protein 5.4 gm/dl (6.0-8.3)
[2021-12-13] MEDS ORDERED: PANTOprazole 80 MG in DEXTROSE 5% 100 ML IV ONE (23:05)
[2021-12-13] MEDS ORDERED: PHYTONADIONE 10 MG in SODIUM CHLORIDE 0.9% 50 ML IV ONE (23:05)
[2021-12-13] MEDS ORDERED: PANTOPRAZOLE BOLUS/DRIP 1 EA IV STA (23:05)
[2021-12-13 23:08] LABS: Acanthocytes 1+; Basophils # (auto) 0.02 K/uL (0-0.2); Basophils % (auto) 0.1 %; Eosinophils # (auto) 0.05 K/uL (0-0.5); Eosinophils % (auto) 0.3 %; Immature Granulocytes # (auto) 0.08 K/uL (0.00-0.02); Immature Granulocytes % (auto) 0.5 %; Lymphocytes % (auto) 9.6 %; Monocytes # (auto) 0.52 K/uL (0.11-0.59); Monocytes % (auto) 3.1 %; Neutrophils # (auto) 14.39 K/uL (1.4-6.5); Neutrophils % (auto) 86.4 %; Ovalocytes 1+
[2021-12-13 23:35] LABS: Troponin I < 0.03 ng/ml (0-0.04)
[2021-12-13] MEDS ORDERED: PROTHROMBIN COMP CONC- KCENTRA 3,500 UNITS in SYRINGE 0 ML IV ONE (23:45)
[2021-12-14] MEDS ORDERED: SODIUM CHLORIDE 0.9% 250 ML IV PRN ×2 (00:34→02:36)
[2021-12-14] MEDS: PANTOprazole 40 MG in DEXTROSE 5% 100 ML IV SCH ×4 (01:13→20:48)
--- NOTE | 2021-12-14 02:11 | History & Physical Report ---
Date of Service December 14, 2021 Assessment & Plan (1) UGIB (upper gastrointestinal bleed): Plan: In the setting of Coumadin coagulopathy Differentials include gastritis, PUD Symptomatic anemia secondary to above Complicated UTI, no overt sepsis for now chronic diastolic heart failure, patient euvolemic A. fib, junctional rhythm on EKG hypertension, stable hx CVA hyperlipidemia on statin Rx DM2, diet controlled, reasonable control as of recent hemoglobin A1c of 7.05 June 2021 CRI, creatinine at baseline Medical telemetry IV PPI Hold Coumadin for now Transfuse PRBC to maintain hemoglobin greater than 8 (hx CVA) GI consult Re: UGI B N.p.o. until patient seen by GI Urine CS, Cefepime Basal insulin adjusted for n.p.o. status, ISS BG goal 1 10-1 40, update hemoglobin A1c PT OT eval once medically stable to ascertain any functional issues predisposing to any medication mix-ups DVT prophylaxis. SCDs if INR less than 2 while Coumadin on hold Full code Patient daughter requesting updates from providers. Ms. Daphne An, contact #[phone]. Text document was generated using [employer] voice recognition software. It may contain grammatical or spelling errors. Kindly contact undersigned for clarification of any documentation item in qu estion. History of Present Illness Chief Complaint: Weakness, melena Primary Care Provider: Brandon Yu MD History obtained from patient, family, and records. Medical history significant for chronic diastolic heart failure EF 55 to 59%, TTE 2020, A. fib on Coumadin, hypertension, history CVA as per records, hyperlipidemia, DM2 diet controlled, CRI (baseline creatinine 1.2). Last confinement 2013 for CHF. Patient felt weaker than usual yesterday. Achy abdominal discomfort with dysuria/urinary frequency. No fever, no chills. No chest pain, no SOB, no headache symptoms. Patient color noted to be different by a family member. Black stools noted at home. No recent change in Coumadin Rx a dosing per patient. No OTC NSAID intake. No recent unusual weight loss. Patient prepares her medications with a daughter checking on her from time to time as per family. Patient brought to the ER for evaluation. IV PPI and Famotidine given, 1 unit PRBC transfused for UGI B. Vitamin K and Kcentra administered for INR of greater than 10. MEDICAL HISTORY: As above. No prior endoscopies. SURGERIES: appendectomy, cataract surgery FAMILY HISTORY: Heart disease, DM, NHL PERSONAL AND SOCIAL HISTORY: Nonsmoker. No chronic ETOH intake, used to work w/ chemicals, lives with a daughter. Allergies Allergy/AdvReac Type Severity Reaction Status Date / Time No Known Allergies Allergy Unverified 12/13/21 22:30 Home Medications Medication Instructions Recorded Confirmed Type sertraline 25 mg tablet 25 mg PO DAILY #0 tab 10/06/14 12/13/21 History tramadol 50 mg tablet 50 mg PO TID PRN #0 tab 10/06/14 12/13/21 History atorvastatin 40 mg tablet 40 mg PO QAM #0 tab 11/01/14 12/13/21 History metoprolol succinate 25 mg 12.5 mg PO QAM #0 11/01/14 12/13/21 History tablet,extended release 24 hr ascorbic acid (vitamin C) 125 mg 125 mg PO DAILY #0 06/20/17 12/13/21 History chewable tablet (Vitamin C) warfarin 1 mg tablet 1 - 2 tab PO UD #0 06/20/17 12/13/21 History acetaminophen 500 mg tablet 500 mg PO DAILY PRN 11/25/21 12/13/21 History isosorbide mononitrate 60 mg 60 mg PO DAILY 12/13/21 12/13/21 History tablet,extended release 24 hr Past Med/Surg History Medical History (Updated 12/14/21 @ 05:03 by Baldomero Johnson MD) Acute CHF (10/06/14) Acute urinary tract infection (08/08/12) AF (atrial fibrillation) (10/06/14) Anxiety (08/08/12) Benign hypertension (08/08/12) CHF exacerbation CVA (cerebral vascular accident) (08/08/12) Cystocele (08/08/12) DM2 (diabetes mellitus, type 2) (08/08/12) Heart disease Hypertension Shortness of breath Thrombophlebitis Urinary frequency (08/08/12) Urinary retention (08/08/12) Surgical History No pertinent past surgical history Social History Smoking Status: Never smoker Preferred Language: Macedonian Feels Safe at Home: Yes Review of Systems Review of Systems: As per HPI, all 10 systems reviewed, all other ROS negative Physical Exam Physical Exam: GENERAL: Comfortable, slightly hard of hearing, obese, no respiratory distress SKIN: Pallor warm HEENT: Pale palpebral conjunctivae, no ptosis, dry buccal mucosa NECK : Supple, short neck, no tenderness CHEST : Decreased breath sounds, occasional expiratory wheezes, no tenderness HEART : RRR, no obvious murmurs ABDOMEN: Some distention, minimal hypogastric tenderness EXTREMITIES : Minimal LE swelling, no LE tenderness,no other conspicuous deformities noted NEUROLOGIC : Coherent, no facial asymmetry, mild hearing impairment, gait and stance not assessed Results & Data Results & Data ([facility]) Vital Signs (Past 12 Hours) Vital Signs Temp Pulse Pulse Resp BP BP Pulse Ox 12/14/21 00:45 84 18 146/61 H 100 12/14/21 00:32 121 H 18 116/63 100 12/14/21 00:30 76 17 116/63 100 12/14/21 00:15 20 121/45 L 100 12/14/21 00:14 84 20 117/47 L 97 12/14/21 00:10 86 L 12/14/21 00:00 110/58 L 85 L 12/13/21 23:00 85 23 130/54 L 99 12/13/21 22:25 36.8 C 86 19 124/46 L 100 Laboratory Results Laboratory Results WBC 16.66 K/uL (4.8-10.8) H 12/13/21 22:24 RBC 2.53 M/uL (4.2-5.4) L 12/13/21 22:24 Hgb 6.6 g/dL (12.0-16.0) L* 12/13/21 22:24 Hct 21.1 % (37-47) L 12/13/21 22:24 MCV 83.4 fL (80-100) 12/13/21 22:24 MCH 26.1 pg (25-34) 12/13/21 22:24 MCHC 31.3 g/dL (32-36) L 12/13/21 22:24 RDW Std Deviation 46.1 fL (36.4-46.3) 12/13/21 22:24 RDW Coeff of Tammie 15.5 % (11.5-14.5) H 12/13/21 22:24 Plt Count 311 K/uL (130-400) 12/13/21 22:24 MPV 11.0 fL (7.4-10.4) H 12/13/21 22:24 Immature Gran % (Auto) 0.5 % 12/13/21 22:24 Neut % (Auto) 86.4 % 12/13/21: Lymph % (Auto) 9.6 % 12/13/21:24 [place] % (Auto) 3.1 % 12/13/21:24 Eos % (Auto) 0.3 % 12/13/21:24 Baso % (Auto) 0.1 % 12/13/21: Neut # (Auto) 14.39 K/uL (1.4-6.5) H 12/13/21 22:24 Lymph # (Auto) 1.60 K/uL (1.2-3.4) 12/13/21:24 [place]aton # (Auto) 0.52 K/uL (0.11-0.59) 12/13/21 22:24 Eos # (Auto) 0.05 K/uL (0-0.5) 12/13/21:24 Baso # (Auto) 0.02 K/uL (0-0.2) 12/13/21:24 Immature Gran # (Auto) 0.08 K/uL (0.00-0.02) H 12/13/21:24 Ovalocytes 1+ 12/13/21: Acanthocytes (Spur) 1+ 12/13/21:24 PT > 90.0 Seconds (9.0-12.0) H 12/13/21 22:24 INR > 10.7 (0.9-1.1) H* 12/13/21 22:24 Sodium 134 mmol/L (136-145) L 12/13/21 22:24 Potassium 4.0 mmol/L (3.5-5.1) 12/13/21 22:24 Chloride 100 mmol/L (98-107) 12/13/21 22:24 Carbon Dioxide 23 mmol/L (21-32) 12/13/21:24 Anion Gap 11 (3-11) 12/13/21 22:24 BUN 76 mg/dl (6-23) H 12/13/21 22:24 Creatinine 1.21 mg/dl (0.6-1.2) H 12/13/21 22:24 Est Cr Clr Drug Dosing Not Reportable 12/13/21 22:24 Est GFR ( Amer) 46.3 ml/min 12/13/21 22:24 Est GFR (Non-Af Amer) 39.9 ml/min 12/13/21 22:24 BUN/Creatinine Ratio 62.8 (10-20) H 12/13/21 22:24 Glucose 276 mg/dl (70-99) H 12/13/21 22:24 Calcium 8.0 mg/dl (8.5-10.1) L 12/13/21 22:24 Magnesium 1.6 mg/dl (1.7-2.4) L 12/13/21 22:24 Total Bilirubin 0.4 mg/dl (0.2-1.0) 12/13/21 22:24 AST 11 U/L (13-39) L 12/13/21 22:24 ALT 8 U/L (7-52) 12/13/21 22:24 Alkaline Phosphatase 46 U/L (34-104) 12/13/21 22:24 Troponin I < 0.03 ng/ml (0-0.04) 12/13/21 22:24 Total Protein 5.4 gm/dl (6.0-8.3) L 12/13/21 22:24 Albumin 3.4 gm/dl (3.4-5.0) 12/13/21 22:24 Globulin 2.0 gm/dl (2.5-4.0) L 12/13/21 22:24 Albumin/Globulin Ratio 1.7 (0.9-2) 12/13/21 22:24 Lipase 40 U/L (11-82) 12/13/21 22:24 Procalcitonin 0.13 ng/ml (0-0.5) 12/13/21 22:24 TSH 1.282 uIu/ml (0.300-4.500) 12/13/21 22:24 Urine Color Yellow 12/13/21 22:56 Urine Appearance Clear (Clear) 12/13/21 22:56 Urine pH 5.0 (4.5-7.5) 12/13/21 22:56 Ur Specific [place] 1.019 (1.000-1.030) 12/13/21 22:56 Urine Protein Negative (Negative) 12/13/21 22:56 Urine Glucose (UA) Negative (Negative) 12/13/21 22:56 Urine Ketones Trace (Negative) H 12/13/21 22:56 Urine Blood Negative (Negative) 12/13/21 22:56 Urine Nitrite Negative (Negative) 12/13/21 22:56 Urine Bilirubin Negative (Negative) 12/13/21 22:56 Urine Urobilinogen Negative (Negative) 12/13/21 22:56 Ur Leukocyte Esterase 1+ (Negative) H 12/13/21 22:56 Urine WBC (Auto) 1-5 /hpf (0-5) 12/13/21 22:56 Urine RBC (Auto) 0-4 /hpf (0-4) 12/13/21 22:56 U Hyaline Cast (Auto) 1-5 /lpf (0-5) 12/13/21 22:56 U Epithel Cells (Auto) 5-10 /lpf (0-5) H 12/13/21 22:56 Urine Bacteria (Auto) Negative (Negative) 12/13/21 22:56 SARS-CoV-2, RNA, NAAT NEGATIVE (NEGATIVE) 12/13/21 22:24 Blood Type A Positive 12/13/21 23:50 Antibody Screen NEGATIVE 12/13/21 23:50 Crossmatch See Detail 12/13/21 23:[address] head initial read: There is in approximately4 cmarea evidence of encephalomalacia in the right frontal parietal region consistent with old infarct, unchanged. The remainder of the brain appearswithin normal limits. No acute large vessel infarct or intracranial hemorrhage is identified. The paranasal sinuses and mastoid air cells are within normal limits. No skull fracture or scalp hematoma is seen. CT abdomen pelvis initial read: There is a nonobstructive 5 mmcalyceal calculus in the lower pole the right kidney. No hydronephrosis or ureterolithiasis is seen. Bowel loops are nondilated. There is moderate diverticulosis of the lower left and sigmoid colon. There are no signs of acute diverticulitis. There are several scattered gas fluid levels in the right and transverse colon suggesting mild ileus. No pneumoperitoneumor free fluid is seen. No signs of acute appendicitis. The abdominal aorta is heavilycalcified but nondilated. The liver, gallbladder, pancreas, spleen, and adrenal glands appear within normal limits. The uterus, adnexa, and urinarybladder appear within normal limits. There are moderate degenerative changes throughout the lower thoracic and lumbar spine. No acute fracture or subluxation is seen. There are severe degenerative osteophytic changes involving the left hip. Chest x-ray as per my interpretation cardiomegaly, atelectasis EKG as per my interpretation : Rate 85, junctional rhythm, LAD, LAFB
[2021-12-14] MEDS ORDERED: CEFEPIME 2,000 MG/20 ML VIAL IV STA (02:18)
[2021-12-14] MEDS ORDERED: GLUCOSE 10 TABS/TUBE PO PRN (02:38)
[2021-12-14] MEDS ORDERED: CARBOHYDRATES FOR HYPOGLYCEMIA PO PRN (02:38)
[2021-12-14] MEDS ORDERED: GLUCOSE 40% GEL 15 GM TUBE PO PRN (02:38)
[2021-12-14] MEDS ORDERED: GLUCAGON FOR INJ 1 MG VIAL SQ PRN (02:38)
[2021-12-14] MEDS ORDERED: INSULIN GLARGINE SOLOSTAR 100 UNITS/ML 3 ML PEN SC STA (02:38)
[2021-12-14] MEDS ORDERED: DEXTROSE 50% 50 ML SYRINGE IV PRN (02:38)
[2021-12-14] MEDS ORDERED: MAGNESIUM SULFATE / D5W 1 GM/100 ML BAG IV STA (02:50)
[2021-12-14] MEDS: INSULIN ASPART PER UNIT SC SCH ×4 (03:11→18:21)
[2021-12-14] MEDS ORDERED: traMADol HCL 50 MG TABLET PO PRN (04:37)
[2021-12-14] MEDS ORDERED: HYDROmorphone INJ 0.5 MG/0.5 ML SYR IV PRN (04:37)
[2021-12-14] MEDS ORDERED: PROMETHAZINE HCL 6.25 MG in SODIUM CHLORIDE 0.9% 50 ML IV PRN (04:37)
[2021-12-14] MEDS ORDERED: ACETAMINOPHEN 325 MG TAB PO PRN (04:37)
--- NOTE | 2021-12-14 05:24 | XRay Report ---
SINGLE VIEW CHEST CLINICAL HISTORY: Generalized weakness. FINDINGS: An AP, portable, upright chest radiograph is compared to study dated 10/06/2014 and correlat ed with chest CT dated 06/20/2017. The heart is enlarged noting mild atherosclerotic calcification of the thoracic aorta. The pulmonary vasculature is noncongested. Chronic interstitial thickening is sim ilar to previous. There is mild bibasilar scarring/atelectasis. The lungs and pleural spaces are othe rwise clear. No pneumothorax is seen. The skeletal structures are osteopenic. The bony thorax is antonia sly intact. IMPRESSION: Mild cardiomegaly with no active disease in the chest. ACT 112: Negative or not required by law. Electronically signed by: Wilber Whittaker M.D. 12/14/2021 5:23 AM
[2021-12-14 06:03] LABS: Estimated Average Glucose 163 mg/dl; Hemoglobin A1C 7.3 % (4.5-5.6)
[2021-12-14] MEDS: SODIUM CHLORIDE 0.9% 1000ML 1,000 ML IV SCH (06:34)
[2021-12-14] MEDS: METOPROLOL SUCC 25MG EXT REL TAB PO SCH (06:34)
--- NOTE | 2021-12-14 07:09 | CT Scan Report ---
CT head/brain wo con CLINICAL HISTORY: 86 years-old Female with confusion, nausea. Acutely altered mental status with donnell sea TECHNIQUE: Multiple axial CT images of the head were obtained without contrast. A dose lowering tech nique was utilized adhering to the principles of ALARA. CT DOSE: 614.27 mGy.cm COMPARISON: Head CT 10/06/2014 FINDINGS: No acute intracranial hemorrhage, midline shift, intracranial mass, hydrocephalus, territorial ischem ia or abnormal extra-axial collection. Age-related involutional changes with white matter hypodensiti es suggestive of chronic microvascular ischemic disease. Cerebral vascular calcifications with chroni c plaque within the distribution of the right MCA. Encephalomalacia from chronic infarct again noted within the right temporal parietal distribution. Chronic appearing lacunar infarcts of the right cere bellum. The calvarium is intact. Prior bilateral lens repair. Trace right mastoid effusion. Left mastoid air cells and paranasal sinuses are generally clear. IMPRESSION: Chronic findings as above without acute intracranial abnormality. ACT 112: Negative or not required by law. The above report was generated using voice recognition software. It may contain grammatical, syntax o r spelling errors. Electronically signed by: Clinton Shoemaker M.D. 12/14/2021 7:08 AM
--- NOTE | 2021-12-14 08:01 | CT Scan Report ---
CT OF THE ABDOMEN AND PELVIS WITHOUT CONTRAST CLINICAL HISTORY: Abdominal pain. Nausea. COMPARISON STUDY: Renal ultrasound August 11, 2012. TECHNIQUE: Axial images of the abdomen and pelvis were obtained without IV contrast. Images were revi ewed in the axial, sagittal, and coronal planes. Automated exposure control was utilized for the andrea dy. A dose lowering technique was utilized adhering to the principles of ALARA. FINDINGS: Small hiatal hernia is present. 4 mm calculus within the lower pole of the right kidney is noted. No ureteral calculi are identified. There is no hydronephrosis. There is a possible 3 mm bladd er calculus. Evaluation the remainder of the abdomen and pelvis is suboptimal as unenhanced exam. Kathie er, spleen, adrenal glands and pancreas are unremarkable. There is no biliary or pancreatic ductal di latation. No peripancreatic or pericholecystic infiltration is present. Colonic diverticulosis is not ed without evidence for acute diverticulitis. There is no ascites or lymphadenopathy. Severe osteoart hritis of the left hip is noted. There is no acute fracture within the visualized skeletal structures . IMPRESSION: 1. 4 mm right renal calculus. No hydronephrosis. No ureteral calculi. 2. No bowel obstruction. 3. Colonic diverticulosis without evidence for acute diverticulitis. 4. Severe osteoarthritis of the left hip. ACT 112: Negative or not required by law. Electronically signed by: Jethro Og M.D. 12/14/2021 7:59 AM
[2021-12-14 08:42] LABS: INR 1.1 (0.9-1.1)
[2021-12-14] MEDS ORDERED: METOPROLOL SUCC 25MG EXT REL TAB PO SCH (09:00)
[2021-12-14 09:02] LABS: Basophils # (auto) 0.02 K/uL (0-0.2); Basophils % (auto) 0.1 %; Eosinophils # (auto) 0.04 K/uL (0-0.5); Eosinophils % (auto) 0.2 %; Hematocrit (blood only) 26.4 % (37-47); Hemoglobin 8.6 g/dL (12.0-16.0); Immature Granulocytes # (auto) 0.12 K/uL (0.00-0.02); Immature Granulocytes % (auto) 0.7 %; Lymphocytes # (auto) 1.43 K/uL (1.2-3.4); Lymphocytes % (auto) 8.6 %; Mean Corpuscular Hemoglobin 27.7 pg (25-34); Mean Corpuscular Volume 84.9 fL (80-100); Mean Platelet Volume 10.8 fL (7.4-10.4); Monocytes # (auto) 1.29 K/uL (0.11-0.59); Monocytes % (auto) 7.7 %; Neutrophils # (auto) 13.81 K/uL (1.4-6.5); Neutrophils % (auto) 82.7 %; Platelet Count 217 K/uL (130-400); RDW Coefficient of Variation 15.5 % (11.5-14.5); RDW Standard Deviation 47.1 fL (36.4-46.3); Red Blood Count 3.11 M/uL (4.2-5.4); White Blood Count 16.71 K/uL (4.8-10.8)
[2021-12-14 09:16] LABS: Mean Corpuscular Hgb Conc 32.6 g/dL (32-36)
[2021-12-14] MEDS: ATORVASTATIN 40 MG TAB PO SCH (10:22)
[2021-12-14] MEDS: SERTRALINE HCL 50 MG TABLET PO SCH (10:23)
[2021-12-14] MEDS: ISOSORBIDE MONO EXTENDED REL 60 MG TABCR PO SCH (10:23)
[2021-12-14 11:00] LABS: Albumin Globulin Ratio 1.6 (0.9-2); Albumin Level 3.2 gm/dl (3.4-5.0); Bilirubin,Total 1.3 mg/dl (0.2-1.0); Calcium 7.8 mg/dl (8.5-10.1); Creatinine Clr Calc Pharmacy 31.5 ml/min; Est GFR (African American) 50.3 ml/min; Est GFR (Non-African American) 43.4 ml/min; Magnesium 1.7 mg/dl (1.7-2.4); Potassium 3.6 mmol/L (3.5-5.1); Total Protein 5.2 gm/dl (6.0-8.3)
--- NOTE | 2021-12-14 11:08 | Anesthesiology Consultation ---
Date of Service December 14, 2021 History Surgery Operation Date: 12/14/21 16:30 Proposed Procedures p Esophagogastroduodenoscopy Dr Solo - Lesly Hurd MD Height/Weight Height: 5 ft 1 in Weight: 73.2 kg Allergies Allergy/AdvReac Type Severity Reaction Status Date / Time No Known Allergies Allergy Unverified 12/13/21 22:30 Medications Home Medications Medication Instructions Recorded Confirmed Last Taken sertraline 25 mg tablet 25 mg PO DAILY #0 tab 10/06/14 12/13/21 11/25/21 tramadol 50 mg tablet 50 mg PO TID PRN #0 tab 10/06/14 12/13/21 11/25/21 atorvastatin 40 mg tablet 40 mg PO QAM #0 tab 11/01/14 12/13/21 11/25/21 metoprolol succinate 25 mg 12.5 mg PO QAM #0 11/01/14 12/13/21 11/25/21 tablet,extended release 24 hr ascorbic acid (vitamin C) 125 mg 125 mg PO DAILY #0 06/20/17 12/13/21 11/25/21 chewable tablet (Vitamin C) warfarin 1 mg tablet 1 - 2 tab PO UD #0 06/20/17 12/13/21 11/24/21 acetaminophen 500 mg tablet 500 mg PO DAILY PRN 11/25/21 12/13/21 11/25/21 isosorbide mononitrate 60 mg 60 mg PO DAILY 12/13/21 12/13/21 Unknown tablet,extended release 24 hr Active Medications Generic Name Dose Route Start Last Admin Trade Name Venkata PRN Reason Stop Dose Admin Atorvastatin Calcium 40 mg 12/14/21 09:00 12/14/21 10:22 Atorvastatin 40 Mg Tab PO 01/13/22 08:59 40 mg QAM DELFINO Administration Pantoprazole Sodium 40 mg/ 100 mls @ 20 mls/hr 12/13/21 23:30 12/14/21 06:33 Dextrose IV 01/12/22 23:29 8 mg/hr Q5H DELFINO 20 mls/hr Administration 8 MG/HR Sodium Chloride 1,000 mls @ 50 mls/hr 12/14/21 04:37 12/14/21 06:34 Nss 1000ml IV 01/13/22 04:36 50 mls/hr .Q20H DELFINO Administration Insulin Aspart 0 units 12/14/21 02:40 12/14/21 10:29 Insulin Aspart Per Unit SC 01/13/22 02:39 1 units Q6 DELFINO Administration Isosorbide Mononitrate 60 mg 12/14/21 09:00 12/14/21 10:23 Isosorbide [place] Extended Rel 60 Mg Tabcr PO 01/13/22 08:59 60 mg DAILY DELFINO Administration Metoprolol Succinate 12.5 mg 12/14/21 04:55 12/14/21 06:34 Metoprolol Succ 25mg Ext Rel Tab PO 01/13/22 04:54 12.5 mg QAM DELFINO Administration Sertraline HCl 25 mg 12/14/21 09:00 12/14/21 10:23 Sertraline Hcl 50 Mg Tablet PO 01/13/22 08:59 25 mg DAILY DELFINO Administration Past Medical History Medical History Acute CHF (10/06/14) Acute urinary tract infection (08/08/12) AF (atrial fibrillation) (10/06/14) Anxiety (08/08/12) Benign hypertension (08/08/12) CHF exacerbation CVA (cerebral vascular accident) (08/08/12) Cystocele (08/08/12) DM2 (diabetes mellitus, type 2) (08/08/12) Heart disease Hypertension Shortness of breath Thrombophlebitis Urinary frequency (08/08/12) Urinary retention (08/08/12) Past Surgical History Surgical History No pertinent past surgical history Social History Smoking Status: Never smoker Physical Exam Vital Signs Last Vital Signs Temp 36.9 C 12/14/21 11:00 Pulse 88 12/14/21 11:00 Resp 20 12/14/21 11:00 BP 116/81 12/14/21 11:00 Pulse Ox 100 12/14/21 11:00 Testing Laboratory Results 12/14/21 08:47 12/14/21 10:10 PT 11.0 Seconds (9.0-12.0) 12/14/21 08:20 INR 1.1 (0.9-1.1) 12/14/21 08:20 Hemoglobin A1c 7.3 % (4.5-5.6) H 12/13/21 22:24 Urine Color Yellow 12/13/21 22:56 Urine Appearance Clear (Clear) 12/13/21 22:56 Urine pH 5.0 (4.5-7.5) 12/13/21 22:56 Ur Specific [place] 1.019 (1.000-1.030) 12/13/21 22:56 Urine Protein Negative (Negative) 12/13/21 22:56 Urine Glucose (UA) Negative (Negative) 12/13/21 22:56 Urine Ketones Trace (Negative) H 12/13/21 22:56 Urine Nitrite Negative (Negative) 12/13/21 22:56 Ur Leukocyte Esterase 1+ (Negative) H 12/13/21 22:56 Urine WBC (Auto) 1-5 /hpf (0-5) 12/13/21 22:56 Urine RBC (Auto) 0-4 /hpf (0-4) 12/13/21 22:56 U Hyaline Cast (Auto) 1-5 /lpf (0-5) 12/13/21 22:56 U Epithel Cells (Auto) 5-10 /lpf (0-5) H 12/13/21 22:56 Urine Bacteria (Auto) Negative (Negative) 12/13/21 22:56 Blood Type A Positive 12/13/21 23:50 Antibody Screen NEGATIVE 12/13/21 23:50 12/14/21 12/14/21 12/14/21 10:15 07:37 03:09 POC Glucose 146 H 156 H 223 H
--- NOTE | 2021-12-14 12:35 | Gastrointestinal Consultation ---
Date of Consultation December 14, 2021 Supervising Physician Co-Signing Physician Notes Attg add: I interviewed and examined pt, reviewed chart and labs. Pt with anemia, elevated INR, melena. INR corrected, hgb stable o/n. VS stable. Plan EGD today. History of Present Illness Reason for Consultation: UGI bleed Requesting Physician: Dr. Johnson Attending Physician: Ilana Belcher MD History of Present Illness Ms. Kina Kapadia is an 86-year-old female patient of Dr. Castle with a history of chronic diastolic heart failure EF 55 to 59%, TTE 2020, A. fib on Coumadin, hypertension, history CVA as per records, hyperlipidemia, DM2 diet controlled, CRI (baseline Cr 1.2). She lives with her daughter. She was brought to the emergency department yesterday for weakness. On arrival, she was found to be profoundly anemic with hemoglobin 6.6. She also had a significantly supratherapeutic INR at greater than 10. Warfarin was held. She received vitamin K and Kcentra and INR this morning is 1.2. BUN was 61. She has received 2 units of RBCs. Hemoglobin after the first unit of blood, before the second was 8.6. Since arrival, she has not had any bowel movements. She denies any abdominal pain. She has not had any nausea or vomiting. The patient is seen and examined while she is resting in bed in the ICU. She is awake alert oriented and able to provide a detailed history. She is hemodynamically stable. She does not have chest pain or shortness of breath. She is saturating at 100% with O2 via nasal cannula at 2 L/min. Allergies Allergy/AdvReac Type Severity Reaction Status Date / Time No Known Allergies Allergy Unverified 12/13/21 22:30 Home Medications Medication Instructions Recorded Confirmed Type sertraline 25 mg tablet 25 mg PO DAILY #0 tab 10/06/14 12/13/21 History tramadol 50 mg tablet 50 mg PO TID PRN #0 tab 10/06/14 12/13/21 History atorvastatin 40 mg tablet 40 mg PO QAM #0 tab 11/01/14 12/13/21 History metoprolol succinate 25 mg 12.5 mg PO QAM #0 11/01/14 12/13/21 History tablet,extended release 24 hr ascorbic acid (vitamin C) 125 mg 125 mg PO DAILY #0 06/20/17 12/13/21 History chewable tablet (Vitamin C) warfarin 1 mg tablet 1 - 2 tab PO UD #0 06/20/17 12/13/21 History acetaminophen 500 mg tablet 500 mg PO DAILY PRN 11/25/21 12/13/21 History isosorbide mononitrate 60 mg 60 mg PO DAILY 12/13/21 12/13/21 History tablet,extended release 24 hr Patient History Medical History Acute CHF (10/06/14) Acute urinary tract infection (08/08/12) AF (atrial fibrillation) (10/06/14) Anxiety (08/08/12) Benign hypertension (08/08/12) CHF exacerbation CVA (cerebral vascular accident) (08/08/12) Cystocele (08/08/12) DM2 (diabetes mellitus, type 2) (08/08/12) Heart disease Hypertension Shortness of breath Thrombophlebitis Urinary frequency (08/08/12) Urinary retention (08/08/12) Surgical History No pertinent past surgical history Social History Smoking Status: Never smoker Hx Alcohol Use: No Hx Substance Use: No Preferred Language: Yi Communication Ability: Effective Public Relations Player Required: No Beliefs That Will Affect Care: None Current Living Situation: Alone Feels Safe at Home: Yes Safety Concerns: Feels Safe At This Time Assistive Devices: Walker Review of Systems Review of Systems: ROS: Gen: + weakness, fevers, weight loss Eyes: No eye redness, or pain, no recent vision changes Resp: No SOB, no cough Cardio: No palpitations/irregular beats, no chest pain GI: No abdominal pain, no nausea/vomiting : Denies pain on urination Skin: No jaundice, itching or new rashes Physical Exam Constitutional: well developed, + ill appearing, + thin and cooperative Eyes: PERRL, conjunctivae normal, anicteric sclerae Respiratory: normal respiratory effort and able to speak in complete sentences; no respiratory distress, no labored breathing, does not use accessory muscles and no cough Cardiovascular: RRR, no murmur, no edema Gastrointestinal (Abdomen): Inspection/Auscultation: abdomen normal to inspection and normal bowel sounds; abdomen not distended and no abdominal edema Skin: no rashes, warm and dry normal turgor and + pallor Neurologic: PERRL, EOMI, accommodation nl, no face palsy, no dysarthria awake; not confused Psychiatric: A+Ox3, euthymic affect Orientation: cooperative Results & Data ([facility]) Vital Signs (Past 12 Hours) Vital Signs Temp Pulse Pulse Resp BP BP Pulse Ox 12/14/21 11:00 36.9 C 88 20 116/81 100 12/14/21 10:00 86 23 141/84 H 100 12/14/21 09:30 36.9 C 97 H 19 152/72 H 100 12/14/21 09:15 36.9 C 84 24 129/73 100 12/14/21 08:54 36.9 C 83 22 133/65 100 12/14/21 06:31 101 H 17 156/77 H 98 12/14/21 06:16 27 H 162/73 H 98 12/14/21 06:00 80 20 104/53 L 100 12/14/21 05:45 88 21 111/54 L 100 12/14/21 05:30 96 H 16 120/71 100 12/14/21 05:16 98 H 21 145/61 H 95 12/14/21 05:00 113 H 26 H 122/82 97 12/14/21 04:45 119 H 25 H 150/86 H 100 12/14/21 04:36 112 H 27 H 149/66 H 99 12/14/21 04:34 112 H 19 149/66 H 99 12/14/21 04:30 102 H 20 84/55 L 99 12/14/21 04:15 105 H 23 120/55 L 100 12/14/21 04:04 36.5 C 100 H 22 114/61 100 12/14/21 04:00 100 H 19 108/50 L 100 12/14/21 03:49 36.5 C 101 H 20 144/60 H 100 12/14/21 03:46 100 H 21 144/60 H 100 12/14/21 03:33 36.8 C 96 H 22 90/54 L 100 12/14/21 03:30 91 H 22 90/54 L 100 12/14/21 03:15 91 H 19 139/65 100 12/14/21 03:00 101 H 20 112/49 L 100 12/14/21 02:45 97 H 20 126/37 L 100 12/14/21 02:30 99 H 15 132/73 100 12/14/21 02:15 98 H 20 136/51 L 99 12/14/21 02:02 122 H 18 130/55 L 100 12/14/21 00:45 84 18 146/61 H 100 12/14/21 00:32 121 H 18 116/63 100 12/14/21 00:30 76 17 116/63 100 Laboratory Results WBC 16, Hb 8.6, HCT 26.4, PLT S2 17, INR 1.1, NA 134, K4, CL 100, CO2 2.3, BUN 76, creatinine 1.2. Diagnostic Findings Noncontrast CTAP 12/14/2021: 1. 4 mm right renal calculus. No hydronephrosis. No ureteral calculi. 2. No bowel obstruction. 3. Colonic diverticulosis without evidence for acute diverticulitis. 4. Severe osteoarthritis of the left hip.
--- NOTE | 2021-12-14 14:04 | Hospitalist Progress Note ---
Date of Service December 14, 2021 Assessment & Plan (1) UGIB (upper gastrointestinal bleed): (2) Acute GI bleeding: (3) Acute blood loss anemia (ABLA): (4) Weakness: (5) Elevated INR: Plan: 86 yo F w/ PMH of CHF (2020 TTE EF 55-59%), Afib on coumadin, HTN, CVA, HLD, DM2 diet controlled, CKD (Cr baseline 1.2) presented after feeling weak on the day of arrival. Per pt, she had black stool on and off for couple of months but she hadn't felt weak like this time. She also report achy abdominal discomfort w/ dysuria/frequency. Pt lives with Dtr. She is being Mx for the following: #. Likely UGIB : gastritis vs PUD #. Acute symptomatic Anemia Reports black stool on/off for couple of months No recent change in Coumadin Rx dosing per patient. No OTC NSAID intake. No recent unusual weight loss. Pt main complaint at presentation was weakness. Baseline Hb 13.0; No prior endoscopies. likely UGIB leading to acute anemia on the background of coumadin coagulopathy, Admitting Hb 6.6 s/p 2 unit PRBC, f/u Hb 8.6 c/w IV PPI, hold coumadin Hb q12h or as needed. Transfuse PRBC to maintain hemoglobin greater than 8 (hx CVA) NPO until otherwise by GI GI onboard: plan for EGD today #. Complicated UTI Pt also complains of achy abdominal discomfort w/ dysuria/frequency at presentation. WBC elevated at presentation at 16.66K, 12/13 UCx pending c/w cefepime 12/14 #. Supratherapeutic INR #. H/o Afib INR 10.7 at presentation s/p Vitamin K and Kcentra administered for INR of greater than 10. Admitting EKG--junctional rhythm No recent change in Coumadin Rx a dosing per patient. INR of 1.1 today, SCDs, resume warfarin when cleared by GI service #. DM 2 DM2, diet controlled, reasonable control as of recent hemoglobin A1c of 7.05 June 2021, 7.3 this admission Basal insulin adjusted for n.p.o. status, on Sliding scale #. Other chronic med conds: CHF diastolic, HTN, HLD, h/o CVA, CKD stable, at baseline, resume/c/w home meds as and when appropriate. PT OT eval once medically stable to ascertain any functional issues predisposing to any medication mix-ups DVT prophylaxis. SCDs if INR less than 2 while Coumadin on hold Full code Patient daughter Ms. Daphne An, contact #[phone]. Admission and Anticipated Discharge Date Admission Date: December 14, 2021 Subjective Patient lying in bed, on 2 L nasal cannula oxygen, NAD, No new acute events overnight per patient. Patient reports feeling better. She complains of some lower belly pain and upper belly pain. Per RN, she had a bladder scan online marketing specialist had 300 ml scanned. Purewick catheter in situ with minimal urine collection. RN communicated for freq bladder scan and see if she is retaining urine if deosn't make urine with cath. Pt remains NPO until GI recs. Pt denies fever/chills/headache/chest pain/palpitation/other ROS. Physical Exam Physical Exam: GENERAL: Alert and oriented x3. NAD, on 2L. generally ill looking HEENT: No pallor, no icterus. Pupils equal, round and reactive to light. Oral mucosa moist. NECK: No JVD, no neck masses. HEART: S1 and S2 heard. Regular rate and rhythm. No murmur, no gallop. RESPIRATORY SYSTEM: Normal AP diameter. No accessory muscle use. No wheezing, no crackles. ABDOMEN: Soft, bowel sounds present, minimal tender lower belly, upper belly not tender, no distention. CENTRAL NERVOUS SYSTEM: No facial droop. Speech is clear. Obeys simple commands. Moves extremities. EXTREMITIES: No edema, no erythema seen. Results & Data Results & Data ([facility]) Vital Signs (Past 12 Hours) Vital Signs Temp Pulse Pulse Resp BP BP Pulse Ox 12/14/21 12:58 36.6 C 87 20 120/62 99 12/14/21 11:00 36.9 C 88 20 116/81 100 12/14/21 10:00 86 23 141/84 H 100 12/14/21 09:30 36.9 C 97 H 19 152/72 H 100 12/14/21 09:15 36.9 C 84 24 129/73 100 12/14/21 08:54 36.9 C 83 22 133/65 100 12/14/21 06:31 101 H 17 156/77 H 98 12/14/21 06:16 27 H 162/73 H 98 12/14/21 06:00 80 20 104/53 L 100 12/14/21 05:45 88 21 111/54 L 100 12/14/21 05:30 96 H 16 120/71 100 12/14/21 05:16 98 H 21 145/61 H 95 12/14/21 05:00 113 H 26 H 122/82 97 12/14/21 04:45 119 H 25 H 150/86 H 100 12/14/21 04:36 112 H 27 H 149/66 H 99 12/14/21 04:34 112 H 19 149/66 H 99 12/14/21 04:30 102 H 20 84/55 L 99 12/14/21 04:15 105 H 23 120/55 L 100 12/14/21 04:04 36.5 C 100 H 22 114/61 100 12/14/21 04:00 100 H 19 108/50 L 100 12/14/21 03:49 36.5 C 101 H 20 144/60 H 100 12/14/21 03:46 100 H 21 144/60 H 100 12/14/21 03:33 36.8 C 96 H 22 90/54 L 100 12/14/21 03:30 91 H 22 90/54 L 100 12/14/21 03:15 91 H 19 139/65 100 12/14/21 03:00 101 H 20 112/49 L 100 12/14/21 02:45 97 H 20 126/37 L 100 12/14/21 02:30 99 H 15 132/73 100 12/14/21 02:15 98 H 20 136/51 L 99 12/14/21 02:02 122 H 18 130/55 L 100
[2021-12-14] MEDS ORDERED: LIDOCAINE 2% 2 ML VIAL/AMP(20MG/ML) INFIL ONE (14:36)
[2021-12-14] MEDS ORDERED: PHENYLEPHRINE 100MCG/ML 5ML SYR ONE (14:36)
[2021-12-14] MEDS ORDERED: PROPOFOL IV EMULSION 10 MG/ML 20 ML VIAL IV ONE (14:36)
--- NOTE | 2021-12-14 14:58 | GI REPORT ---
Patient Name: Kina Kapadia Procedure Date: 12/14/2021 2:24 PM Date of : 1935 Admit Type: Inpatient Age: 86 Gender: Female Attending MD: Lesly Hurd MD Procedure: Upper GI endoscopy Providers: Lesly Hurd MD Referring MD: Ilana Belcher Md Indications: Iron deficiency anemia Medicines: See the Anesthesia note for documentation of the administered medications Complications: No immediate complications. Estimated Blood Loss: Estimated blood loss: none. Procedure: Pre-Anesthesia Assessment: - ASA Grade Assessment: IV - A patient with severe systemic disease that is a constant threat to life. After obtaining informed consent, the endoscope was passed under direct vision. Throughout the procedure, the patient's blood pressure, pulse, and oxygen saturations were monitored continuously. The Endoscope was introduced through the mouth, and advanced to the second part of duodenum. The upper GI endoscopy was accomplished without difficulty. The patient tolerated the procedure well. Findings: The Z-line was found 30 cm from the incisors. A mild Schatzki ring was found at the gastroesophageal junction. The gastroesophageal flap valve was visualized endoscopically and classified as Hill Grade III (minimal fold, loose to endoscope, hiatal hernia likely). The fundus and body of the stomach. There was marked edema and deformity of the antrum. There was an erosion at the incisura with marked mucosal edema. There were two benign appearing clean based ulcers in the antrum, measuring 4-5 mm in length. The pylorus was patulous. There was patchy edema and erythema of the mucosa of the bulb. The second portion of the duodenum was normal. Biopsies taken from edges of antral ulcers and from throughout the stomach. Impression: Antral ulcers. Duodenitis. Ring. Hiatal hernia. Recommendation: - Discharge patient to floor. May begin clear lqiuids today, and advance diet to regular tomorrow if hgb stable. Omeprazole 20 mg PO twice daily x 8 weeks. Avoid NSAIDs. Treat H pylori if bx positive. Given absence of stigmata, may resume coumadin in 3 days if pt is at high risk for thromboembolic disease. Lesly Hurd M.D. Lesly Hurd MD 12/14/2021 2:57:17 PM This report has been signed electronically. Note Initiated On: 12/14/2021 2:24 PM Number of Addenda: 0 I attest to the content of the Intraoperative Record and orders documented therein, exceptions below {[id number]}
--- NOTE | 2021-12-14 15:05 | Anesthesiology Progress Note ---
Date of Service December 14, 2021 Anesthesia Post Procedure Vital Signs Vital Signs: Temp Pulse Pulse Resp BP BP Pulse Ox 12/14/21 14:56 89 16 118/65 100 12/14/21 14:41 79 16 94/50 L 99 12/14/21 12:58 36.6 C 87 20 120/62 99 12/14/21 12:30 96 H 19 138/80 98 12/14/21 12:15 98 H 20 100 12/14/21 12:00 94 H 23 133/76 99 12/14/21 11:45 90 19 95 12/14/21 11:30 90 21 143/67 H 98 12/14/21 11:15 102 H 25 H 99 12/14/21 11:00 36.9 C 95 H 19 116/81 100 12/14/21 10:45 94 H 19 100 12/14/21 10:30 87 22 150/82 H 98 12/14/21 10:15 77 20 100 12/14/21 10:00 101 H 21 141/84 H 100 12/14/21 09:45 92 H 18 100 12/14/21 09:30 36.9 C 86 18 152/72 H 100 12/14/21 09:15 36.9 C 78 17 129/73 100 12/14/21 09:00 36.9 C 87 86 22 129/73 129/73 98 12/14/21 08:56 127 H 19 133/65 98 12/14/21 08:55 93 H 19 65/54 L 100 12/14/21 08:54 36.9 C 83 22 133/65 100 12/14/21 08:45 94 H 23 100 12/14/21 08:30 84 28 H 114/63 100 12/14/21 08:15 93 H 24 147/81 H 100 12/14/21 08:00 94 H 26 H 135/68 100 12/14/21 07:45 93 H 22 126/65 99 12/14/21 07:30 114 H 23 124/61 100 12/14/21 07:15 98 H 18 140/73 100 12/14/21 07:00 81 21 113/63 100 12/14/21 06:45 109 H 23 129/89 100 12/14/21 06:31 101 H 17 156/77 H 98 12/14/21 06:16 27 H 162/73 H 98 12/14/21 06:00 80 20 104/53 L 100 12/14/21 05:45 88 21 111/54 L 100 12/14/21 05:30 96 H 16 120/71 100 12/14/21 05:16 98 H 21 145/61 H 95 12/14/21 05:00 113 H 26 H 122/82 97 12/14/21 04:45 119 H 25 H 150/86 H 100 12/14/21 04:36 112 H 27 H 149/66 H 99 12/14/21 04:34 112 H 19 149/66 H 99 12/14/21 04:30 102 H 20 84/55 L 99 12/14/21 04:15 105 H 23 120/55 L 100 12/14/21 04:04 36.5 C 100 H 22 114/61 100 12/14/21 04:00 100 H 19 108/50 L 100 12/14/21 03:49 36.5 C 101 H 20 144/60 H 100 12/14/21 03:46 100 H 21 144/60 H 100 12/14/21 03:33 36.8 C 96 H 22 90/54 L 100 12/14/21 03:30 91 H 22 90/54 L 100 12/14/21 03:15 91 H 19 139/65 100 12/14/21 03:00 101 H 20 112/49 L 100 12/14/21 02:45 97 H 20 126/37 L 100 12/14/21 02:30 99 H 15 132/73 100 12/14/21 02:15 98 H 20 136/51 L 99 12/14/21 02:02 122 H 18 130/55 L 100 12/14/21 00:45 84 18 146/61 H 100 12/14/21 00:32 121 H 18 116/63 100 12/14/21 00:30 76 17 116/63 100 12/14/21 00:15 20 121/45 L 100 12/14/21 00:14 84 20 117/47 L 97 12/14/21 00:10 86 L 12/14/21 00:00 110/58 L 85 L 12/13/21 23:00 85 23 130/54 L 99 12/13/21 22:25 36.8 C 86 19 124/46 L 100 Pulse Ox 12/14/21 14:56 12/14/21 14:41 12/14/21 12:58 12/14/21 12:30 12/14/21 12:15 12/14/21 12:00 12/14/21 11:45 12/14/21 11:30 12/14/21 11:15 12/14/21 11:00 12/14/21 10:45 12/14/21 10:30 12/14/21 10:15 12/14/21 10:00 12/14/21 09:45 12/14/21 09:30 12/14/21 09:15 12/14/21 09:00 12/14/21 08:56 12/14/21 08:55 12/14/21 08:54 12/14/21 08:45 12/14/21 08:30 12/14/21 08:15 12/14/21 08:00 12/14/21 07:45 12/14/21 07:30 12/14/21 07:15 12/14/21 07:00 100 12/14/21 06:45 12/14/21 06:31 12/14/21 06:16 12/14/21 06:00 12/14/21 05:45 12/14/21 05:30 12/14/21 05:16 12/14/21 05:00 12/14/21 04:45 12/14/21 04:36 12/14/21 04:34 12/14/21 04:30 12/14/21 04:15 12/14/21 04:04 12/14/21 04:00 12/14/21 03:49 12/14/21 03:46 12/14/21 03:33 12/14/21 03:30 12/14/21 03:15 12/14/21 03:00 12/14/21 02:45 12/14/21 02:30 12/14/21 02:15 12/14/21 02:02 12/14/21 00:45 12/14/21 00:32 12/14/21 00:30 12/14/21 00:15 12/14/21 00:14 12/14/21 00:10 12/14/21 00:00 12/13/21 23:00 12/13/21 22:25 Transfer of Care Handoff Completed per policy Notes Mental Status: alert / awake / arousable and participated in evaluation Patient Amnestic to Procedure: Yes Nausea / Vomiting: adequately controlled Pain: adequately controlled Airway Patency, RR, SpO2: stable & adequate BP & HR: stable & adequate Hydration State: stable & adequate Anesthetic Complications: no major complications apparent and Pt Satisfied with anesthetic care
[2021-12-14] MEDS: CEFEPIME 2,000 MG in SYRINGE 0 ML IV SCH (18:28)
--- NOTE | 2021-12-14 19:04 | Electrocardiogram Report ---
Test Reason : Blood Pressure : / mmHG Vent. Rate : 087 BPM Atrial Rate : 087 BPM P-R Int : 000 ms QRS Dur : 088 ms QT Int : 392 ms P-R-T Axes : 000 -33 052 degrees QTc Int : 471 ms Probable atrial flutter with 2:1 AV conduction Left axis deviation Low voltage QRS Abnormal ECG When compared with ECG of 20-JUN-2017 13:46, No significant change Confirmed by Chao Cuevas ([id number]) on 12/14/2021 7:04:52 PM Referred By: REFERRED SELF Confirmed By:Chao Cuevas
[2021-12-14 22:29] LABS: Hematocrit (blood only) 25.6 % (37-47); Hemoglobin 8.4 g/dL (12.0-16.0)
[2021-12-15] MEDS: INSULIN ASPART PER UNIT SC SCH ×5 (00:04→20:07)
[2021-12-15] MEDS: PANTOprazole 40 MG in DEXTROSE 5% 100 ML IV SCH ×5 (00:53→21:59)
[2021-12-15] MEDS ORDERED: CEFEPIME 2,000 MG in SYRINGE 0 ML IV SCH (02:00)
[2021-12-15] MEDS: SODIUM CHLORIDE 0.9% 1000ML 1,000 ML IV SCH (04:26)
[2021-12-15] MEDS: CEFEPIME 2,000 MG in SYRINGE 0 ML IV SCH ×2 (05:51→17:29)
[2021-12-15] MEDS: ATORVASTATIN 40 MG TAB PO SCH (08:47)
[2021-12-15] MEDS: ISOSORBIDE MONO EXTENDED REL 60 MG TABCR PO SCH (08:47)
[2021-12-15] MEDS: METOPROLOL SUCC 25MG EXT REL TAB PO SCH (08:48)
[2021-12-15] MEDS: SERTRALINE HCL 50 MG TABLET PO SCH (08:48)
[2021-12-15 09:25] LABS: Hematocrit (blood only) 27.4 % (37-47); Hemoglobin 8.9 g/dL (12.0-16.0); Mean Corpuscular Hemoglobin 28.1 pg (25-34); Mean Corpuscular Hgb Conc 32.5 g/dL (32-36); Mean Corpuscular Volume 86.4 fL (80-100); Mean Platelet Volume 10.1 fL (7.4-10.4); Platelet Count 240 K/uL (130-400); RDW Coefficient of Variation 16.4 % (11.5-14.5); RDW Standard Deviation 50.4 fL (36.4-46.3); Red Blood Count 3.17 M/uL (4.2-5.4); White Blood Count 13.64 K/uL (4.8-10.8)
[2021-12-15] MEDS: INSULIN GLARGINE SOLOSTAR 100 UNITS/ML 3 ML PEN SC SCH (09:56)
[2021-12-15 09:59] LABS: BUN Creatinine Ratio 32.1 (10-20); Calcium 7.7 mg/dl (8.5-10.1); Creatinine Clr Calc Pharmacy 33.3 ml/min; Est GFR (African American) 54.3 ml/min; Est GFR (Non-African American) 46.8 ml/min; Magnesium 1.7 mg/dl (1.7-2.4); Phosphorus 2.9 mg/dl (2.5-4.9); Potassium 3.5 mmol/L (3.5-5.1)
[2021-12-15] MEDS ORDERED: POTASSIUM CHLORIDE CRTAB 20 MEQ TABCR PO STA (12:11)
[2021-12-15] MEDS: MAGNESIUM OXIDE 400 MG TAB PO SCH ×2 (13:29→20:07)
--- NOTE | 2021-12-15 16:20 | Hospitalist Progress Note ---
Date of Service December 15, 2021 Assessment & Plan (1) UGIB (upper gastrointestinal bleed): (2) Acute GI bleeding: (3) Acute blood loss anemia (ABLA): (4) Weakness: (5) Elevated INR: Plan: 86 yo F w/ PMH of CHF (2020 TTE EF 55-59%), Afib on coumadin, HTN, CVA, HLD, DM2 diet controlled, CKD (Cr baseline 1.2) presented after feeling weak on the day of arrival. Per pt, she had black stool on and off for couple of months but she hadn't felt weak like this time. She also report achy abdominal discomfort w/ dysuria/frequency. Pt lives with Dtr. She is being Mx for the following: #. Likely UGIB : gastritis vs PUD #. Acute symptomatic Anemia Reports black stool on/off for couple of months at presentation No recent change in Coumadin Rx dosing per patient. No OTC NSAID intake. No recent unusual weight loss. Pt main complaint at presentation was weakness. Baseline Hb 13.0; No prior endoscopies. likely UGIB leading to acute anemia on the background of coumadin coagulopathy, Admitting Hb 6.6 s/p 2 unit PRBC, f/u Hb 8.6 Status post EGD 12/14: Antral ulcers, duodenitis, hiatal hernia. Biopsies taken from antral ulcers and throughout stomach. c/w IV PPI, hold coumadin, transition to oral PPI tomorrow. Hb q12h or as needed. Transfuse PRBC to maintain hemoglobin greater than 8 (hx CVA) Advance diet as tolerated, will DC IV fluid. GI onboard: Omeprazole 20 twice daily for 8 weeks, avoid NSAIDs, treat H. pylori if biopsy positive, resume Coumadin in 3 days. Continue to monitor over telemetry. #. Complicated UTI Pt also complains of achy abdominal discomfort w/ dysuria/frequency at presentation. WBC elevated at presentation at 16.66K, 12/13 UCx pending c/w cefepime 12/14 #. Supratherapeutic INR #. H/o Afib INR 10.7 at presentation s/p Vitamin K and Kcentra administered for INR of greater than 10. Admitting EKG--junctional rhythm No recent change in Coumadin Rx a dosing per patient. Send INR for tomorrow, SCDs, resume warfarin tomorrow #. DM 2 DM2, diet controlled, reasonable control as of recent hemoglobin A1c of 7.05 June 2021, 7.3 this admission on Sliding scale #. Other chronic med conds: CHF diastolic, HTN, HLD, h/o CVA, CKD stable, at baseline, resume/c/w home meds as and when appropriate. PT OT eval once medically stable to ascertain any functional issues predisposing to any medication mix-ups DVT prophylaxis. SCDs if INR less than 2 while Coumadin on hold Full code Patient daughter Ms. Daphne An, contact #[phone]. 12/15--> called patient's daughter Daphne over the phone, given her current status of the patient, updated her that she underwent scope and biopsy of the ulcers, we will have to wait for the result and she might need to follow-up with the primary care physician to decide on further management, she will also need to follow-up with GI doctor as an outpatient, she confirmed that patient takes 2 tablets of 1 mg warfarin daily. Daphne made aware that patient is to follow-up closely with Coumadin clinic to adjust her Coumadin dose upon DC. Admission and Anticipated Discharge Date Admission Date: December 14, 2021 Subjective Patient was sitting up in chair, on room air, NAD, no new acute events overnight. Patient reports moving bowel and reports it being black in color. Patient reports feeling better than yesterday and reports weakness has gotten better. Patient denies any fever/chills/headache/dizziness/chest pain/palpitation/other review of symptoms. Patient denies belly pain. Physical Exam Physical Exam: GENERAL: Alert and oriented x3. NAD, on RA. HEENT: No pallor, no icterus. Pupils equal, round and reactive to light. Oral mucosa moist. NECK: No JVD, no neck masses. HEART: S1 and S2 heard. Regular rate and rhythm. No murmur, no gallop. RESPIRATORY SYSTEM: Normal AP diameter. No accessory muscle use. No wheezing, no crackles. ABDOMEN: Soft, bowel sounds present, nontender, no distention. CENTRAL NERVOUS SYSTEM: No facial droop. Speech is clear. Obeys simple commands. Moves extremities. EXTREMITIES: Trace BLE edema, no erythema seen. Results & Data Results & Data ([facility]) Vital Signs (Past 12 Hours) Vital Signs Temp Pulse Pulse Resp BP Pulse Ox 12/15/21 14:59 81 12/15/21 14:41 36.6 C 83 17 126/65 96 12/15/21 10:56 37.1 C 90 18 113/65 92 12/15/21 09:47 90 12/15/21 07:36 36.5 C 100 H 16 121/72 96
[2021-12-16] MEDS: PANTOprazole 40 MG in DEXTROSE 5% 100 ML IV SCH ×3 (03:00→13:00)
[2021-12-16] MEDS: CEFEPIME 2,000 MG in SYRINGE 0 ML IV SCH ×2 (05:11→17:44)
[2021-12-16 07:15] LABS: Hematocrit (blood only) 27.9 % (37-47); Hemoglobin 8.7 g/dL (12.0-16.0); Mean Corpuscular Hemoglobin 27.7 pg (25-34); Mean Corpuscular Hgb Conc 31.2 g/dL (32-36); Mean Corpuscular Volume 88.9 fL (80-100); Mean Platelet Volume 10.3 fL (7.4-10.4); Platelet Count 238 K/uL (130-400); RDW Coefficient of Variation 17.1 % (11.5-14.5); RDW Standard Deviation 54.9 fL (36.4-46.3); Red Blood Count 3.14 M/uL (4.2-5.4); White Blood Count 10.65 K/uL (4.8-10.8)
[2021-12-16 07:25] LABS: INR 1.1 (0.9-1.1); Prothrombin Time 10.9 Seconds (9.0-12.0)
[2021-12-16 07:40] LABS: BUN Creatinine Ratio 17.6 (10-20); Creatinine Clr Calc Pharmacy 29.5 ml/min; Est GFR (African American) 47.2 ml/min; Est GFR (Non-African American) 40.7 ml/min; Magnesium 1.7 mg/dl (1.7-2.4); Potassium 4.2 mmol/L (3.5-5.1)
[2021-12-16] MEDS: MAGNESIUM OXIDE 400 MG TAB PO SCH (08:06)
[2021-12-16] MEDS: ISOSORBIDE MONO EXTENDED REL 60 MG TABCR PO SCH (08:06)
[2021-12-16] MEDS: SERTRALINE HCL 50 MG TABLET PO SCH (08:06)
[2021-12-16] MEDS: INSULIN GLARGINE SOLOSTAR 100 UNITS/ML 3 ML PEN SC SCH (08:07)
[2021-12-16] MEDS: METOPROLOL SUCC 25MG EXT REL TAB PO SCH (08:07)
[2021-12-16] MEDS: ATORVASTATIN 40 MG TAB PO SCH (08:07)
[2021-12-16] MEDS: INSULIN ASPART PER UNIT SC SCH ×4 (08:08→19:57)
[2021-12-16] MEDS ORDERED: WARFARIN SOD 2 MG TAB PO SCH (16:00)
--- NOTE | 2021-12-16 16:07 | Hospitalist Progress Note ---
Date of Service December 16, 2021 Assessment & Plan (1) UGIB (upper gastrointestinal bleed): (2) Acute GI bleeding: (3) Acute blood loss anemia (ABLA): (4) Weakness: (5) Elevated INR: Plan: 86 yo F w/ PMH of CHF (2020 TTE EF 55-59%), Afib on coumadin, HTN, CVA, HLD, DM2 diet controlled, CKD (Cr baseline 1.2) presented after feeling weak on the day of arrival. Per pt, she had black stool on and off for couple of months but she hadn't felt weak like this time. She also report achy abdominal discomfort w/ dysuria/frequency. Pt lives with Dtr. She is being Mx for the following: #. Likely UGIB : gastritis vs PUD #. Acute symptomatic Anemia Reports black stool on/off for couple of months at presentation No recent change in Coumadin Rx dosing per patient. No OTC NSAID intake. No recent unusual weight loss. Pt main complaint at presentation was weakness. Baseline Hb 13.0; No prior endoscopies. likely UGIB leading to acute anemia on the background of coumadin coagulopathy, Admitting Hb 6.6 s/p 2 unit PRBC, f/u Hb 8.6 Status post EGD 12/14: Antral ulcers, duodenitis, hiatal hernia. Biopsies taken from antral ulcers and throughout stomach. IV to oral PPI, resume coumadin, f/u EGD biopsy Hb q12h or as needed. Transfuse PRBC to maintain hemoglobin greater than 8 (hx CVA) Advance diet as tolerated, RN communicated GI onboard: Omeprazole 20 twice daily for 8 weeks, avoid NSAIDs, treat H. pylori if biopsy positive. Continue to monitor over telemetry. #. Complicated UTI Pt also complains of achy abdominal discomfort w/ dysuria/frequency at presentation. WBC elevated at presentation at 16.66K, 12/13 UCx no growth c/w cefepime 12/14, c/t assess. #. Supratherapeutic INR #. H/o Afib INR 10.7 at presentation s/p Vitamin K and Kcentra administered for INR of greater than 10. Admitting EKG--junctional rhythm No recent change in Coumadin Rx a dosing per patient. Send INR for tomorrow, SCDs, resume warfarin at 1 mg (lower dose) d/t elevated INR at presentation #. DM 2 DM2, diet controlled, reasonable control as of recent hemoglobin A1c of 7.05 June 2021, 7.3 this admission on Sliding scale #. Other chronic med conds: CHF diastolic, HTN, HLD, h/o CVA, CKD stable, at baseline, resume/c/w home meds as and when appropriate. PT OT eval once medically stable to ascertain any functional issues predisposing to any medication mix-ups DVT prophylaxis. SCDs if INR less than 2 while Coumadin on hold Full code Patient daughter Ms. Daphne An, contact #[phone]. 12/15--> called patient's daughter Daphne over the phone, given her current status of the patient, updated her that she underwent scope and biopsy of the ulcers, we will have to wait for the result and she might need to follow-up with the primary care physician to decide on further management, she will also need to follow-up with GI doctor as an outpatient, she confirmed that patient takes 2 tablets of 1 mg warfarin daily. Daphne made aware that patient is to follow-up closely with Coumadin clinic to adjust her Coumadin dose upon DC. Disposition: expect DC in next 1-2 days. PT/OT eval. CM to assist with DC planning. Admission and Anticipated Discharge Date Admission Date: December 14, 2021 Subjective Patient sitting up in bed, on room air, NAD, no new acute events overnight. Patient reports moving bowel, unsure of color of the stool. Patient reports eating okay. Patient reports feeling "crappy" but not able to point out to any specific signs or symptoms. Patient denies fever/chills/chest pain/palpitations/belly pain/other review of symptoms. Physical Exam Physical Exam: GENERAL: Alert and oriented x3. NAD, on RA. HEENT: No pallor, no icterus. Pupils equal, round and reactive to light. Oral mucosa moist. NECK: No JVD, no neck masses. HEART: S1 and S2 heard. Regular rate and rhythm. No murmur, no gallop. RESPIRATORY SYSTEM: Normal AP diameter. No accessory muscle use. No wheezing, no crackles. ABDOMEN: Soft, bowel sounds present, nontender, no distention. CENTRAL NERVOUS SYSTEM: No facial droop. Speech is clear. Obeys simple commands. Moves extremities. EXTREMITIES: Trace BLE edema, no erythema seen. Results & Data Results & Data ([facility]) Vital Signs (Past 12 Hours) Vital Signs Temp Pulse Resp BP BP Pulse Ox 12/16/21 15:15 36.9 C 89 20 119/68 96 12/16/21 12:06 36.5 C 90 20 120/57 L 95 12/16/21 07:54 36.6 C 88 18 165/75 H 98 12/16/21 04:00 37.0 C 86 18 113/63 92
[2021-12-16] MEDS ORDERED: WARFARIN SOD 1 MG TAB PO SCH (16:15)
[2021-12-16] MEDS: PANTOprazole 40 MG TAB PO SCH (20:03)
[2021-12-17] MEDS: CEFEPIME 2,000 MG in SYRINGE 0 ML IV SCH ×2 (05:18→14:39)
[2021-12-17 07:48] LABS: Hematocrit (blood only) 27.6 % (37-47); Hemoglobin 8.6 g/dL (12.0-16.0); Mean Corpuscular Hemoglobin 27.7 pg (25-34); Mean Corpuscular Hgb Conc 31.2 g/dL (32-36); Mean Platelet Volume 10.1 fL (7.4-10.4); Platelet Count 262 K/uL (130-400); RDW Coefficient of Variation 17.6 % (11.5-14.5); RDW Standard Deviation 55.7 fL (36.4-46.3); White Blood Count 9.74 K/uL (4.8-10.8)
[2021-12-17 08:04] LABS: INR 1.2 (0.9-1.1); Prothrombin Time 12.2 Seconds (9.0-12.0)
[2021-12-17 08:18] LABS: Creatinine Clr Calc Pharmacy 32.5 ml/min; Est GFR (African American) 53.1 ml/min; Est GFR (Non-African American) 45.8 ml/min; Magnesium 1.7 mg/dl (1.7-2.4)
[2021-12-17] MEDS: METOPROLOL SUCC 25MG EXT REL TAB PO SCH (08:31)
[2021-12-17] MEDS: PANTOprazole 40 MG TAB PO SCH (08:31)
[2021-12-17] MEDS: ATORVASTATIN 40 MG TAB PO SCH (08:32)
[2021-12-17] MEDS: SERTRALINE HCL 50 MG TABLET PO SCH (08:32)
[2021-12-17] MEDS: ISOSORBIDE MONO EXTENDED REL 60 MG TABCR PO SCH (08:32)
[2021-12-17] MEDS: INSULIN GLARGINE SOLOSTAR 100 UNITS/ML 3 ML PEN SC SCH (08:33)
[2021-12-17] MEDS: INSULIN ASPART PER UNIT SC SCH ×2 (08:34→12:05)
[2021-12-17] MEDS ORDERED: ADVANCED PROBIOTIC 1250 MG CAPSULE PO SCH (12:45)
--- NOTE | 2021-12-17 12:50 | Discharge Summary ---
Date of Service December 17, 2021 Admission HPI Per Admitting Provider History obtained from patient, family, and records. Medical history significant for chronic diastolic heart failure EF 55 to 59%, TTE 2020, A. fib on Coumadin, hypertension, history CVA as per records, hyperlipidemia, DM2 diet controlled, CRI (baseline creatinine 1.2). Last confinement 2013 for CHF. Patient felt weaker than usual yesterday. Achy abdominal discomfort with dysuria/urinary frequency. No fever, no chills. No chest pain, no SOB, no headache symptoms. Patient color noted to be different by a family member. Black stools noted at home. No recent change in Coumadin Rx a dosing per patient. No OTC NSAID intake. No recent unusual weight loss. Patient prepares her medications with a daughter checking on her from time to time as per family. Patient brought to the ER for evaluation. IV PPI and Famotidine given, 1 unit PRBC transfused for UGI B. Vitamin K and Kcentra administered for INR of greater than 10. MEDICAL HISTORY: As above. No prior endoscopies. SURGERIES: appendectomy, cataract surgery FAMILY HISTORY: Heart disease, DM, NHL PERSONAL AND SOCIAL HISTORY: Nonsmoker. No chronic ETOH intake, used to work w/ chemicals, lives with a daughter. Admission Exam Per Admitting Provider GENERAL: Comfortable, slightly hard of hearing, obese, no respiratory distress SKIN: Pallor warm HEENT: Pale palpebral conjunctivae, no ptosis, dry buccal mucosa NECK : Supple, short neck, no tenderness CHEST : Decreased breath sounds, occasional expiratory wheezes, no tenderness HEART : RRR, no obvious murmurs ABDOMEN: Some distention, minimal hypogastric tenderness EXTREMITIES : Minimal LE swelling, no LE tenderness,no other conspicuous deformities noted NEUROLOGIC : Coherent, no facial asymmetry, mild hearing impairment, gait and stance not assessed Principal Diagnosis Supratherapeutic INR Upper GI bleed Acute symptomatic anemia Complicated UTI Discharge Exam GENERAL: Alert and oriented x3. NAD, on RA. HEENT: No pallor, no icterus. Pupils equal, round and reactive to light. Oral mucosa moist. NECK: No JVD, no neck masses. HEART: S1 and S2 heard. Regular rate and rhythm. No murmur, no gallop. RESPIRATORY SYSTEM: Normal AP diameter. No accessory muscle use. No wheezing, no crackles. ABDOMEN: Soft, bowel sounds present, nontender, no distention. CENTRAL NERVOUS SYSTEM: No facial droop. Speech is clear. Obeys simple commands. Moves extremities. EXTREMITIES: Trace BLE edema, no erythema seen. Discharge Data Allergies Allergy/AdvReac Type Severity Reaction Status Date / Time No Known Allergies Allergy Unverified 12/13/21 22:30 Consultations 12/14/21 02:01 ED Decision to Admit Stat 12/14/21 04:37 Consult Gastroenterology Routine Procedures Performed Operation Date: 12/14/21 16:30 Actual Procedures p EGD Biopsy Cytology - Lesly Hurd MD Ordered Studies 12/13/21 22:41 CT abd pelvis wo con Urgent 12/13/21 22:42 CT head/brain wo con Urgent Hospital Course (1) UGIB (upper gastrointestinal bleed): (2) Acute GI bleeding: (3) Acute blood loss anemia (ABLA): (4) Weakness: (5) Elevated INR: 86 yo F w/ PMH of CHF (2020 TTE EF 55-59%), Afib on coumadin, HTN, CVA, HLD, DM2 diet controlled, CKD (Cr baseline 1.2) presented after feeling weak on the day of arrival. Per pt, she had black stool on and off for couple of months but she hadn't felt weak like this time. She also report achy abdominal discomfort w/ dysuria/frequency. Pt lives with Dtr. She was Mx for the following: #. Likely UGIB : gastritis vs PUD #. Acute symptomatic Anemia Reports black stool on/off for couple of months at presentation No recent change in Coumadin Rx dosing per patient. No OTC NSAID intake. No recent unusual weight loss. Pt main complaint at presentation was weakness. Baseline Hb 13.0; No prior endoscopies. likely UGIB leading to acute anemia on the background of coumadin coagulopathy, Admitting Hb 6.6 s/p 2 unit PRBC, f/u Hb 8.6 Status post EGD 12/14: Antral ulcers, duodenitis, hiatal hernia. Biopsies taken from antral ulcers and throughout stomach. Omeprazole twice a day for 8 weeks upon discharge, follow-up with EGD biopsy as discussed over the phone. Get the blood work hemoglobin and INR done in 2 days upon discharge. GI onboard: Omeprazole 20 twice daily for 8 weeks, avoid NSAIDs, treat H. pylori if biopsy positive. Patient started made aware to follow-up biopsy results with PCP over the phone. #. Complicated UTI Pt also complains of achy abdominal discomfort w/ dysuria/frequency at presentation. WBC elevated at presentation at 16.66K, 12/13 UCx no growth Cefepime 12/14 transitioned to Augmentin upon discharge for 3 more days Add probiotic. #. Supratherapeutic INR #. H/o Afib INR 10.7 at presentation s/p Vitamin K and Kcentra administered for INR of greater than 10. Admitting EKG--junctional rhythm No recent change in Coumadin Rx a dosing per patient. Send INR for tomorrow, SCDs, resume warfarin at 1 mg (lower dose) d/t elevated INR at presentation d/w pharmacy about coumadin dose adjustments Patient's daughter given a phone call and updated that her Coumadin dose has been reduced to 1 mg daily after discussion with pharmacy today, made aware that she needs to closely follow-up with Coumadin clinic upon discharge and get PT/INR done in 2 days upon discharge. #. DM 2 DM2, diet controlled, reasonable control as of recent hemoglobin A1c of 7.05 June 2021, 7.3 this admission on Sliding scale #. Other chronic med conds: CHF diastolic, HTN, HLD, h/o CVA, CKD stable, at baseline, resume/c/w home meds as and when appropriate. PT OT eval once medically stable to ascertain any functional issues predisposing to any medication mix-ups DVT prophylaxis. SCDs if INR less than 2 while Coumadin on hold Full code Patient daughter Ms. Daphne An, contact #[phone]. 12/15--> called patient's daughter Daphne over the phone, given her current status of the patient, updated her that she underwent scope and biopsy of the ulcers, we will have to wait for the result and she might need to follow-up with the primary care physician to decide on further management, she will also need to follow-up with GI doctor as an outpatient, she confirmed that patient takes 2 tablets of 1 mg warfarin daily. Daphne made aware that patient is to follow-up closely with Coumadin clinic to adjust her Coumadin dose upon DC. 12/17 --> Daphne given phone call, updated that her Hb has been stable with brown stool, her coumadin dose is reduced d/t high INR and risk of bleeding, advised to f/u with coumadin clinic in 2 days upon discharge, also f/u with gastric biopsy with PCP for further manangement. Updated about her current status. Daphne voiced understanding and was agreeable to the plan of care. Patient is being discharged to home with family support upon recommendation from PT/OT and medically stability, with following instruction at the point of discharge: Follow-up with your primary care physician within 1 week time. Because you presented with very high INR, your Coumadin dose has been decreased to 1 mg daily, follow-up with Coumadin clinic in 2 days upon discharge as discussed over the phone (with Daphne)/at bedside, he will need a very close monitoring with the Coumadin clinic as an outpatient to figure out the appropriate dose of Coumadin. If there is concern of any black stool/blood in the stool, hold you warfarin and reach out to your primary care physician or emergency immediately. GI Evaluated you while inpatient, did EGD scope, took some biopsy, the results of which are pending. You had some gastric ulcer and duodenitis and you are being discharged on omeprazole. Also you will need to follow-up with gastric biopsy with your primary care physician to figure out whether or not you will need treatment going forward as discussed over the phone [with Daphne]. Avoid NSAIDs. Get blood work CBC and PT/INR done in 2 days upon discharge. He will be discharged on few days worth of antibiotic for your UTI and will be prescribed a probiotic for the same duration. You are being discharged to home with family support with PT/OT recommendation. Take medications as prescribed. Total Time Total Time Spent Total Time Spent (In Minutes): 40 Discharge Plan Discharge Items Reason For Visit: ANEMIA; UGIB Discharge Diagnosis: Supratherapeutic INR Upper GI bleed Acute symptomatic anemia Complicated UTI Activity: Resume your previous activity Non-emergency contact: Primary Care Provider Call non-emergency contact if: you have any medication questions, your symptoms worsen and your temperature is above 101 Follow-up/Referrals: Brandon Yu MD [Primary Care Provider] - Diet: Carb Consistent or DM2 Diet Comment: Minced and Moist diet Addtl Attending Provider Instructions: Follow-up with your primary care physician within 1 week time. Because you presented with very high INR, your Coumadin dose has been decreased to 1 mg daily, follow-up with Coumadin clinic in 2 days upon discharge as discussed over the phone (with Daphne)/at bedside, he will need a very close monitoring with the Coumadin clinic as an outpatient to figure out the appropriate dose of Coumadin. If there is concern of any black stool/blood in the stool, hold you warfarin and reach out to your primary care physician or emergency immediately. GI Evaluated you while inpatient, did EGD scope, took some biopsy, the results of which are pending. You had some gastric ulcer and duodenitis and you are being discharged on omeprazole. Also you will need to follow-up with gastric biopsy with your primary care physician to figure out whether or not you will need treatment going forward as discussed over the phone [with Daphne]. Avoid NSAIDs. Get blood work CBC and PT/INR done in 2 days upon discharge. He will be discharged on few days worth of antibiotic for your UTI and will be prescribed a probiotic for the same duration. You are being discharged to home with family support with PT/OT recommendation. Take medications as prescribed. Pending Studies at Discharge: Yes (GI biopsy final results.) Stand-Alone Forms: My [facility] [employer], Smoking Cessation Medications and DC Order Prescriptions: New warfarin [Jantoven] 1 mg Tablet 1 mg PO DAILY@1600 Qty: 30 RF: 0 Advanced Probiotic 625 mg (10 billion cell) Capsule 2 cap PO DAILY 3 Days Qty: 6 RF: 0 amoxicillin-pot clavulanate [Augmentin] 500-125 mg tablet 1 tab PO BID 3 Days Qty: 6 RF: 0 omeprazole 20 mg tablet,delayed release (DR/EC) 20 mg PO BID 56 Days Qty: 112 RF: 0 Continued sertraline 25 mg Tablet 25 mg PO DAILY Qty: 0 RF: 0 tramadol 50 mg Tablet 50 mg PO TID PRN (Reason: Pain) Qty: 0 RF: 0 atorvastatin 40 mg Tablet 40 mg PO QAM Qty: 0 RF: 0 metoprolol succinate 25 mg Tablet Extended Release 24 Hr 12.5 mg PO QAM Qty: 0 RF: 0 ascorbic acid (vitamin C) [Vitamin C] 125 mg Tablet,Chewable 125 mg PO DAILY Qty: 0 RF: 0 acetaminophen [Tylenol Ex Str Rapid Release] 500 mg Tablet 500 mg PO DAILY PRN (Reason: Pain) RF: 0 isosorbide mononitrate 60 mg tablet extended release 24 hr 60 mg PO DAILY RF: 0 Discontinued warfarin 1 mg Tablet 1 mg PO TUTH Qty: 0 RF: 0 warfarin 2 mg Tablet 2 mg PO [id number] RF: 0 Krames/Other Patient Handouts: High Blood Sugar (Hyperglycemia), Managing Type 2 Diabetes Admission Data Admit Date/Time: 12/14/21 02:43 Attending Provider: Ilana Belcher Admit Provider: Baldomero Johnson Primary Care Provider: Brandon Yu Other Providers: Baldomero Johnson ; Deon Middleton ; Angelika Villeda ; Leia Mix ; Rosemary Farrar ; Viktor Starks ; Siria Srivastava ; Lesly Hurd ; Sesar Patrick ; Sahara Collins ; Breanna Michael ; Stefany Aguilera ; Becca Purdy ; Jayla Summers
[2021-12-18] MEDS ORDERED: WARFARIN SOD 1 MG TAB PO SCH (16:00)
== END 2021-12-17 15:33 | disposition home health service (06) | DRG 378 ==
LOC: ED 22:12 → EDINP 12-14 02:43 → 2N 12-14 04:44